=== PATIENT | male | born 1945 | race Caucasian/White ===

== ENCOUNTER → 2016-10-24 | Outpatient (CLI) | payer OTHER | LOC: BHFA 10:00 | PROVIDERS: ATTEND Internal Medicine Cardiovascular Disease | DX: I25.10 Atherosclerotic heart disease of native coronary artery without angina pectoris (principal) ==

== ENCOUNTER 2017-02-26 15:15 | Inpatient (IN) | payer OTHER ==
[2017-02-26] MEDS ORDERED: NS 1,000 ML IV ONE (16:55)
--- NOTE | 2017-02-26 17:01 | EDPHY ---
H & P Stated Complaint: vertigo, fall Time Seen by Provider: 02/26/17 16:42 HPI/ROS: CHIEF COMPLAINT: Syncope HISTORY OF PRESENT ILLNESS: The patient is a 71-year-old man who comes to the emergency department after 3 syncopal events today. He has a history of Meniere 's disease and is followed by Dr. James from ENT. He has almost constant vertigo with intermittent exacerbations. He woke up with an exacerbation this morning and while he was trying to crawl to the toilet to vomit he fainted. He is unsure how long he was out but woke up and resumed crawling to the toilet. He did not vomit. He then went down to the kitchen around 8:00 a.m. and had another episode where he collapsed from sitting at the table. He denies chest pain or shortness of breath with these episodes. He woke up on the ground. He did not sustain any injuries. Then again around 10:00 a.m. he had another episode while he was standing at the counter. He felt nauseous and vertiginous at the time. He again denies chest pain or shortness of breath. He hit his ear he thinks on the counter and has a hematoma and a small laceration behind his ear. He has a mild headache and neck pain but states that this is baseline for his been nares disease. He denies having any new pain. He denies any injuries to his extremities or torso. He has a history of atrial fibrillation status post ablation in 2006. He continues to take Rythmol. He does not take blood thinners other than aspirin and fish oil. He denies any focal weakness or deficits. The syncope however is new and does not typically occur with his Meniere's disease. REVIEW OF SYSTEMS: Constitutional: denies: chills, fever, recent illness, recent injury EENTM: Left ear with hematoma and small laceration Respiratory: denies: cough, shortness of breath Cardiac: denies: chest pain, irregular heart rate, lightheadedness, palpitations Gastrointestinal/Abdominal: denies: abdominal pain, diarrhea, nausea, vomiting, blood streaked stools Genitourinary: denies: dysuria, frequency, hematuria, pain Musculoskeletal: See HPI Skin: denies: lesions, rash, jaundice, bruising Neurological: See HPI Hematologic/Lymphatic: denies: blood clots, easy bleeding, easy bruising Immunologic/allergic: denies: HIV/AIDS, transplant EXAM: GENERAL: Well-appearing, well-nourished and in no acute distress. HEAD: Small abrasion to the top of his head. No hematoma or crepitus EYES: Pupils equal round and reactive to light, extraocular movements intact, sclera anicteric, conjunctiva are normal. ENT: Hematoma to the left ear and the scaphoid fossa. Small shallow laceration behind the ear. TMs normal, nares patent, oropharynx clear without exudates. Moist mucous membranes. NECK: Normal range of motion, supple without lymphadenopathy or JVD. No midline tenderness. LUNGS: Breath sounds clear to auscultation bilaterally and equal. No wheezes rales or rhonchi. HEART: Regular rate and rhythm without murmurs, rubs or gallops. ABDOMEN: Soft, nontender, normoactive bowel sounds. No guarding, no rebound. No masses appreciated. BACK: No CVA tenderness, no spinal tenderness, step-offs or deformities EXTREMITIES: Normal range of motion, no pitting or edema. No clubbing or cyanosis. NEUROLOGICAL: Cranial nerves II through XII grossly intact. Normal speech, normal gait. 5/5 strength, normal movement in all extremities, normal sensation PSYCH: Normal mood, normal affect. SKIN: Warm, dry, normal turgor, no visible rashes or lesions. Source: Patient Exam Limitations: No limitations - Personal History Current Tetanus Diphtheria and Acellular Pertussis (TDAP): Yes Tetanus Vaccine Date: 2008 - Medical/Surgical History Hx Asthma: No Hx Chronic Respiratory Disease: No Hx Diabetes: No Hx Cardiac Disease: No Hx Renal Disease: No Hx Cirrhosis: No Hx Alcoholism: No Hx HIV/AIDS: No Hx Splenectomy or Spleen Trauma: No Other PMH: a-fib, ablation 2006, sleep apnea, lumbar fusion , cervical fusion, R TKA - Family History Significant Family History: No pertinent family hx - Social History Smoking Status: Never smoked Alcohol Use: Sober Drug Use: None Constitutional: Initial Vital Signs Temperature (C) 36.5 C 02/26/17 15:22 Heart Rate 76 02/26/17 15:22 Respiratory Rate 16 02/26/17 15:22 Blood Pressure 113/72 02/26/17 15:22 O2 Sat (%) 97 02/26/17 15:22 O2 Delivery Mode Room Air Allergies/Adverse Reactions: amoxicillin [Amoxicillin] Allergy (Intermediate, Verified 10/19/09 11:25) RASH ON RIGHT DELTOID morphine Allergy (Verified 04/12/13 09:46) GI Home Medications: Medication Instructions Recorded Aspirin [Aspirin 81mg (OTC)] 81 mg PO HS 11/13/14 Irbesartan/Hydrochlorothiazide 1 tab PO DAILY 11/13/14 [Avalide 300-12.5 mg Tablet] Multivitamins [Multivitamin (OTC)] 1 tab PO DAILY 11/13/14 Turner-3 Fatty Acids [Fish Oil 1000 1,000 mg PO DAILY 11/13/14 mg (OTC)] Propafenone HCl Sr [Rythmol Sr 425 mg PO Q12 11/13/14 425mg (RX)] Simvastatin [Zocor 10 mg (RX)] 10 mg PO HS 11/13/14 Fexofenadine HCl [Deyanira Allergy] 60 mg PO DAILY 02/26/17 Herbals/Supplements -Info Only 1 ea PO DAILY 02/26/17 Montelukast Sodium [Montelukast 10 mg PO DAILY@18 02/26/17 Sodium] Medical Decision Making - Diagnostics EKG Interpretation: An EKG obtained and was read and documented in trace view. Please see trace view for full reading and report. 1st degree AV block with a rate of 69 versus junctional rhythm, new compared to 2011. An EKG obtained and was read and documented in trace view. Please see trace view for full reading and report. Junctional rhythm Imaging Results: Imaging Impressions Cervical Spine CT 02/26/17 16:55 Impression: 1. Acute nondisplaced fracture right C6 pedicle. 2. No other cervical spine fracture. 3. Bony fusion of C5 and C6 and well seated ACDF at C5-C6 are unchanged since 2012. 4. If the patient has persistent pain or neurologic deficits, consider cervical spine MRI. Findings discussed with emergency department physician, Dr. Kyra Holguin on February 26, 2017 at 5:[address] 02/26/17 16:55 Impression: 1. No acute fracture or intracranial hemorrhage. 2. Mild ethmoid and sphenoid sinus disease. Findings discussed with emergency department physician, Dr. Kyra Holguin on February 26, 2017 at 5:36 p.m. Procedures: Hematoma drainage: 18 gauge needle was placed at the scaphoid fossa and 2 cc of blood was withdrawn. The patient's ear was then addressed with packing in a pressure dressing. ED Course/Re-evaluation: The patient was placed in a cervical collar. His hematoma was drained. I will admit for syncopal episodes in the setting of AV block. I will also consult Neurosurgery considering his pedicle fracture. I spoke with Dr. Kern who suggested a cervical collar will consult. She would discharge if this was the patient's only injury. Cervical collar placed. 6:40 p.m. discussed the case with Dr. Dwain Elena who will admit to medical service. Differential Diagnosis: Partial list of the Differential diagnosis considered include but were not limited to; hematoma, laceration, head injury, neck injury, arrhythmia and although unlikely based on the history and physical exam, I also considered PE, infection, seizure. Critical Care Time: Critical care time spent by me, Dr. Watson exclusive with this patient was 35 minutes, exclusive of the PA time exclusive of procedures. The organ system that was at risk was neurologic musculoskeletal and cardiovascular and I gave trauma care and evaluation as well as cardiac workup to prevent worsening of the patient's condition - Data Points Laboratory Results: Laboratory Results 02/26/17 17:20 02/26/17 17:20 02/26/17 02/26/17 02/26/17 18:25 17:20 17:20 WBC RBC Hgb Hct MCV MCH MCHC RDW Plt Count MPV Neut % (Auto) Lymph % (Auto) Crosby % (Auto) Eos % (Auto) Baso % (Auto) Nucleat RBC Rel Count Absolute Neuts (auto) Absolute Lymphs (auto) Absolute Monos (auto) Absolute Eos (auto) Absolute Basos (auto) Absolute Nucleated RBC Immature Gran % Immature Gran # PT 12.9 SEC SEC (12.0-15.0) INR 0.98 (0.83-1.16) APTT 21.0 SEC L SEC (23.0-38.0) D-Dimer 2.77 ug/mLFEU H ug/mLFEU (0.00-0.50) Sodium 130 mEq/L L mEq/L (134-144) Potassium 3.9 mEq/L mEq/L (3.5-5.2) Chloride 94 mEq/L L mEq/L (97-110) Carbon Dioxide 27 mEq/l mEq/l (22-31) Anion Gap 9 mEq/L mEq/L (8-16) BUN 26 mg/dL H mg/dL (7-23) Creatinine 1.0 mg/dL mg/dL (0.7-1.3) Estimated GFR > 60 Glucose 174 mg/dL H mg/dL (70-100) Calcium 9.4 mg/dL mg/dL (8.5-10.4) Troponin I < 0.012 ng/mL ng/mL (0-0.034) Ur Random Sodium 21 mEq/L L mEq/L (30-90) Ethyl Alcohol < 10 mg/dL mg/dL (0-10) 02/26/17 17:20 WBC 7.14 10^3/uL 10^3/uL (3.80-9.50) RBC 4.07 10^6/uL L 10^6/uL (4.40-6.38) Hgb 13.5 g/dL L g/dL (13.7-17.5) Hct 38.6 % L % (40.0-51.0) MCV 94.8 fL fL (81.5-99.8) MCH 33.2 pg pg (27.9-34.1) MCHC 35.0 g/dL g/dL (32.4-36.7) RDW 12.3 % % (11.5-15.2) Plt Count 192 10^3/uL 10^3/uL (150-400) MPV 10.3 fL fL (8.7-11.7) Neut % (Auto) 85.8 % H % (39.3-74.2) Lymph % (Auto) 6.0 % L % (15.0-45.0) Crosby % (Auto) 7.6 % % (4.5-13.0) Eos % (Auto) 0.1 % L % (0.6-7.6) Baso % (Auto) 0.1 % L % (0.3-1.7) Nucleat RBC Rel Count 0.0 % % (0.0-0.2) Absolute Neuts (auto) 6.12 10^3/uL 10^3/uL (1.70-6.50) Absolute Lymphs (auto) 0.43 10^3/uL L 10^3/uL (1.00-3.00) Absolute Monos (auto) 0.54 10^3/uL 10^3/uL (0.30-0.80) Absolute Eos (auto) 0.01 10^3/uL L 10^3/uL (0.03-0.40) Absolute Basos (auto) 0.01 10^3/uL L 10^3/uL (0.02-0.10) Absolute Nucleated RBC 0.00 10^3/uL 10^3/uL (0-0.01) Immature Gran % 0.4 % % (0.0-1.1) Immature Gran # 0.03 10^3/uL 10^3/uL (0.00-0.10) PT INR APTT D-Dimer Sodium Potassium Chloride Carbon Dioxide Anion Gap BUN Creatinine Estimated GFR Glucose Calcium Troponin I Ur Random Sodium Ethyl Alcohol Medications Given: Discontinued Medications Sodium Chloride (Ns) 1,000 mls @ 0 mls/hr IV ONCE ONE PRN Reason: Wide Open Stop: 02/26/17 16:56 Last Admin: 02/26/17 17:45 Dose: 1,000 mls Ibuprofen (Motrin) 600 mg PO EDNOW ONE Stop: 02/26/17 18:31 Last Admin: 02/26/17 18:50 Dose: 600 mg Departure - Departure Disposition: [facility] Inpatient Acute Clinical Impression: Syncope and collapse, Hematoma Cervical spine fracture Qualifiers: Encounter type: initial encounter Cervical vertebra fracture level: C6 Fracture type: closed Fracture morphology: other fracture Fracture alignment: nondisplaced Qualified Code(s): S12.591A - Other nondisplaced fracture of sixth cervical vertebra, initial encounter for closed fracture Condition: Fair
--- NOTE | 2017-02-26 17:28 | CPEKG ---
Heart Rate: 69 RR Interval: 870 QRSD Interval: 88 QT Interval: 380 QTC Interval: 407 QRS [place]: 66 T Wave [place]: 38 EKG Severity - ABNORMAL ECG - EKG Impression: LOW VOLTAGE IN FRONTAL LEADS EKG Impression: 1St degree AV block versus junctional rhythm Electronically Signed By: Lavon Watson 26-Feb-2017 17:30:16
[2017-02-26 17:36] LABS: % IMMATURE GRANULYOCYTES 0.4 % (0.0-1.1); ABSOLUTE IMMATURE GRANULOCYTES 0.03 10^3/uL (0.00-0.10); ADD DIFF? NO; ADD MORPH? NO; ADD SCAN? NO; ATYPICAL LYMPHOCYTE FLAG 0 (0-99); FRAGMENT RBC FLAG 0 (0-99); HEMATOCRIT 38.6 % (40.0-51.0); HEMOGLOBIN 13.5 g/dL (13.7-17.5); LEFT SHIFT FLG 0 (0-99); LIPEMIA HEMOLYSIS FLAG 90 (0-99); MEAN CELL HEMOGLOBIN 33.2 pg (27.9-34.1); MEAN CELL VOLUME 94.8 fL (81.5-99.8); MEAN PLATELET VOLUME 10.3 fL (8.7-11.7); PLATELET CLUMPS FLAG 0 (0-99); PLATELET COUNT 192 10^3/uL (150-400); RED BLOOD CELL COUNT 4.07 10^6/uL (4.40-6.38); RED CELL DISTRIBUTION WIDTH 12.3 % (11.5-15.2)
[2017-02-26 17:49] LABS: ANION GAP 9 mEq/L (8-16); CALCIUM 9.4 mg/dL (8.5-10.4); CARBON DIOXIDE 27 mEq/l (22-31); CHLORIDE 94 mEq/L (97-110); ETHANOL SERUM < 10 mg/dL (0-10); GLOMERULAR FILTRATION RATE > 60; GLUCOSE 174 mg/dL (70-100); POTASSIUM 3.9 mEq/L (3.5-5.2); SODIUM 130 mEq/L (134-144)
[2017-02-26 17:55] LABS: INR 0.98 (0.83-1.16); PROTIME(PATIENT) 12.9 SEC (12.0-15.0)
[2017-02-26 18:01] LABS: TROPONIN I < 0.012 ng/mL (0-0.034)
[2017-02-26] MEDS ORDERED: IBUPROFEN 600 MG TAB PO ONE (18:30)
--- NOTE | 2017-02-26 18:39 | CPEKG ---
Heart Rate: 63 RR Interval: 952 QRSD Interval: 88 QT Interval: 400 QTC Interval: 410 QRS [place]: 61 T Wave [place]: 36 EKG Severity - ABNORMAL ECG - EKG Impression: ACCELERATED JUNCTIONAL ESCAPE RHYTHM EKG Impression: LOW VOLTAGE IN FRONTAL LEADS Electronically Signed By: Lavon Watson 26-Feb-2017 19:13:58
[2017-02-26] MEDS ORDERED: DIAZEPAM 5 MG TAB PO PRN (19:13)
[2017-02-26] MEDS ORDERED: oxyCODONE IR 5 MG TAB PO PRN (19:13)
--- NOTE | 2017-02-26 19:52 | GHP ---
[f rep st] HISTORY AND PHYSICAL DATE OF ADMISSION: 02/26/2017 CHIEF COMPLAINT: Syncope and vertigo. HISTORY OF PRESENT ILLNESS: This is a 71-year-old male with longstanding history of vertigo, attributed to possible Meniere disease, who presented to the emergency department after having 3 syncopal episodes today. The 1st episode occurred at 4 o'clock this morning when he awoke with an urge to defecate. He says that he gets this feeling at the onset of his vertigo spells. Upon getting out of bed, he became vertiginous, dropped to the floor, and began crawling toward the bathroom where apparently, he passed out. He was able to get back into his bed and went back to sleep. At around 10 o'clock this morning, he got up and had some tea and saltines and then awoke on the floor with what he describes as a sore ear. He was able to sit back down and started feeling better, but began to walk to the sink since he was nauseous and passed out a 3rd time. None of these episodes were associated with any chest pain or palpitations. He denies any previous syncopal episodes. He did have some neck pain after his 3rd fall. He denies any numbness or weakness in the hands. Currently, his vertigo is better. He denies any chest pain. PAST MEDICAL HISTORY: 1. Vertigo due to possible Meniere disease, followed by Dr. James of ENT. 2. Hypertension. 3. Atrial fibrillation status post ablation by Dr. Bryan, on [facility]. 4. Dyslipidemia. 5. Prostate cancer. PAST SURGICAL HISTORY: 1. Right total knee arthroplasty. 2. C1-C2 fusion. 3. Lumbar fusion. 4. Turbinate reduction. 5. Radical prostatectomy and radiation treatment for prostate cancer. HOME MEDICATIONS: Reviewed. Refer to [facility] for details. ALLERGIES: Penicillin and morphine. SOCIAL HISTORY: The patient is . He denies any tobacco or illicit drug use. He drinks alcohol occasionally. FAMILY HISTORY: Reviewed and noncontributory. REVIEW OF SYSTEMS: Comprehensive 10-point review of systems was done and was negative, except for as mentioned in the HPI. PHYSICAL EXAM: VITAL SIGNS: Blood pressure 122/68, pulse 74, respiratory rate 15, O2 saturation 96% on room air. Temperature afebrile. GENERAL: No acute distress. HEAD: Normocephalic. Right ear hematoma was drained in the emergency department. NECK: In a hard cervical collar. CARDIOVASCULAR: S1, S2. No lower extremity edema. Was unable to listen for bruits since the patient has a cervical collar. PULMONARY: Lungs were clear. No wheezes, rales , or rhonchi. ABDOMEN: Soft, mildly distended. No guarding or rebound tenderness. Normoactive bowel sounds. EXTREMITIES: No clubbing or cyanosis. NEURO: Cranial nerves 2 through 12 grossly intact. 5/5 muscle strength bilateral upper extremity flexion, extension, urgent care strength, with no gross sensory deficits. SKIN: Clear. No rashes. DIAGNOSTICS: Head CT shows no acute fracture or intracranial hemorrhage. EKG, which I visualized and personally interpreted, shows a junctional rhythm, 63 beats per minute. No ischemic changes. WBC 7.1, hemoglobin 13.5, hematocrit 38.6, platelets 192, D-dimer elevated at 2.77. Sodium 130, potassium 3.9, chloride 94, BUN 26, creatinine 1, glucose 174. Cervical spine CT is currently pending. Preliminary read shows a C6 pedicle fracture. ASSESSMENT AND PLAN: This is a 71-year-old male with reported history of recurrent vertigo and suspected Meniere's, presenting with: 1. Recurrent syncope concerning for drop attacks from a cardiac etiology in the setting of an abnormal EKG showing junctional rhythm. Plan: The patient will be monitored on telemetry. We will consult Dr. Malin who is plastic surgeon for the cardiology service. 2. C6 pedicle fracture. Plan: I discussed the case with Dr. Watson in the emergency department who has spoken to Dr. Kern who was plastic surgeon for Neurosurgery. Will see the patient in consultation. He should remain in a C- spine collar. 3. Right ear hematoma, status post drainage. Plan: Continue wound care. 4. Mild hyponatremia. Plan: We will send a urine sodium and repeat a metabolic panel in the morning. 5. Prerenal azotemia consistent with dehydration, possibly contributing to his symptoms. Plan: Will give IV fluids and monitor. 6. History of atrial fibrillation on Rythmol and aspirin. Plan: See above. 7. The patient will be placed on observation where he will be closely monitored. Addendum: I discussed case with Dr. Figueroa Malin who is plastic surgeon for Cardiology who recommended that we hold his Rythmol and obtain an echocardiogram which has been ordered. Cardiology will see him in the morning. /[id number]/MODL MTDD
[2017-02-26] MEDS: PRAVASTATIN SODIUM 20 MG TAB PO SCH (21:49)
[2017-02-26] MEDS: ASPIRIN 81 MG CHEWABLE TAB PO SCH (21:49)
[2017-02-27 04:23] LABS: % IMMATURE GRANULYOCYTES 0.2 % (0.0-1.1); ABSOLUTE IMMATURE GRANULOCYTES 0.01 10^3/uL (0.00-0.10); ADD DIFF? NO; ADD MORPH? NO; ADD SCAN? NO; ATYPICAL LYMPHOCYTE FLAG 0 (0-99); FRAGMENT RBC FLAG 0 (0-99); HEMATOCRIT 36.8 % (40.0-51.0); HEMOGLOBIN 12.6 g/dL (13.7-17.5); LEFT SHIFT FLG 0 (0-99); LIPEMIA HEMOLYSIS FLAG 90 (0-99); MEAN CELL HEMOGLOBIN 32.9 pg (27.9-34.1); MEAN CELL HEMOGLOBIN CONCENTR. 34.2 g/dL (32.4-36.7); MEAN CELL VOLUME 96.1 fL (81.5-99.8); MEAN PLATELET VOLUME 10.5 fL (8.7-11.7); PLATELET CLUMPS FLAG 0 (0-99); PLATELET COUNT 177 10^3/uL (150-400); RED BLOOD CELL COUNT 3.83 10^6/uL (4.40-6.38); RED CELL DISTRIBUTION WIDTH 12.6 % (11.5-15.2)
[2017-02-27 04:38] LABS: ANION GAP 6 mEq/L (8-16); CALCIUM 8.6 mg/dL (8.5-10.4); CARBON DIOXIDE 27 mEq/l (22-31); CHLORIDE 103 mEq/L (97-110); GLOMERULAR FILTRATION RATE > 60; GLUCOSE 89 mg/dL (70-100); POTASSIUM 3.8 mEq/L (3.5-5.2); SODIUM 136 mEq/L (134-144)
[2017-02-27] MEDS: ACETAMINOPHEN 325 MG TAB PO PRN (07:31)
[2017-02-27] MEDS: ONDANSETRON 4 MG/2 ML VIAL IVP PRN ×3 (07:57→18:19)
[2017-02-27] MEDS ORDERED: Herbals/Supplements -Info Only PO SCH (09:00)
[2017-02-27] MEDS ORDERED: HYDROCHLOROTHIAZIDE 12.5 MG CAP PO SCH ×2 (09:00→09:18)
[2017-02-27] MEDS ORDERED: IRBESARTAN 150 MG TAB PO SCH (09:00)
--- NOTE | 2017-02-27 09:41 | ECHO ---
[id number] + + [id number] : : [place] [address] : : [phone] + + Adult Echocardiographic Report + ---------+ :Name: RENETTA REYES NStudy Date: 02/27/2017 08:00 AM : : Hospital Admission Number: [id number] Yvonne alfonso: [birth year]: :: 1945 Gender: Male Height: 68 i n : :Age: 71 yrs Race: WH Weight: 142 lb : :Reason For Study: Syncope : : BSA: 1.8 met ers2 : + ---------+ MMode/2D Measurements \T\ Calculations Ao root diam: 3.2 cm LA dimension: 3.0 cm Normal Measurement Values: + + :LVIDd (3.5-5.7cm) IVSd (0.6-1.1cm) LVPWd (0.6-1.1cm) Aortic Root (2.0-3.7cm)Left Atrium (1.5-4.0cm): :LV Vol(d) (76-115ml) LV Vol(s) (29-48ml) Ejec Fraction (50-65%)PV Catalino (0.6- 1.2m/s) TV Catalino (0.4-1.0m/s) : :MV E Catalino (0.8-1.0m/s)MV A Catalino (0.3-1.0m/s)LVOT Catalino (0.7-1.2m/s) Asc Ao Catalino ( 0.9-1.8m/s) : + + Doppler Measurements \T\ Calculations MV E max catalino: 61.7 cm/sec Ao V2 max: 97.7 cm/sec MV A max catalino: 46.9 cm/sec Ao max P.8 mmHg MV E/A: 1.3 Left Ventricle The left ventricle is normal in size. Left ventricular systolic function is normal. Ejection Fraction = 60-65%. Right Ventricle The right ventricle is mildly dilated. Atria The left atrial size is normal. Right atrium not well visualized. Mitral Valve The mitral valve is grossly normal in structure. There is trace to mild mitral regurgitation. Tricuspid Valve The tricuspid valve is not well visualized. Aortic Valve The aortic valve is not well visualized. There is no aortic stenosis. Pulmonic Valve The pulmonic valve is not well visualized. Great Vessels The aortic root is normal size. Pericardium/Pleural There is no pericardial effusion. Conclusion A complete two-dimensional transthoracic echocardiogram was performed (2D, M-mode, Doppler and color flow Doppler). The study was technically limited. 1. This is a technically limited study. 2. The left ventricle is normal in size. The Ejection Fraction = 60-65%. 3. The right ventricle is mildly dilated. 4. The mitral valve is grossly normal in structure. There is trace to mild mitral regurgitation. 5. The aortic valve is not well visualized. There is no aortic stenosis by doppler. 6. There is no pericardial effusion. 7. The pulmonary artery pressure could not be adequately estimated. Final Reading Physician: Figueroa Malin MD electronically signed on 02/27/2017 09:40 AM Ordering Physician: Dwain Elena Performed By: Kmi Alvarado RDCS
--- NOTE | 2017-02-27 09:41 | HOSPPROG ---
Hospitalist Progress Note Assessment/Plan: DIAGNOSES: # multiple syncopal episodes with finding of junctional rhythm at presentation # acute traumatic pedicle fracture of C6; prior C4-5 fusion laminectomy with instrumentation appears stable by CT scan # ongoing vertigo symptoms, chronic history of recurrent vertigo with suspected Meniere's disease and right-sided hearing loss # history of atrial fibrillation status post ablation # history of hypertension I reviewed the patient's case in detail with Dr. Figueroa Malin of Cardiology. The feeling is that the patient is having his syncopal spells due to a combination of nausea vomiting, change in autonomic tone related to that, as well as his Meniere's disease. Discussion with the ENT physicians as shown their desire to increase his diuretic. At this point will increase his hydrochlorothiazide decreases angiotensin receptor salo doses. Follow his blood pressure closely. Continue follow his cardiac electrical activity and conduction on monitor at this point to make sure does not have any further heart block issues. It is not suspected he is likely to need a repeat benefit by pacemaker but will follow closely to make sure that we do not see changes indicating that ache procedure. The patient is still having a fair bit of neck pain without radicular neurologic symptoms. He is still in a rigid cervical collar and his cervical spine has not been formally cleared yet. We are waiting for Neurosurgery to evaluate his neck pain and fracture and neurologic examination. PLANS: -will need ongoing inpatient care on hyperbaric nurse -pain control -will add some scopolamine at this time to try and reduce his vertigo and nausea symptoms; we need to watch his bladder emptying a CSA history of prostate cancer, treated -continue rigid cervical spine collar for now until is spine is cleared; await neurosurgical evaluation and recommendations -change his blood pressure medicines as above to increase his diuretic and see if this helps his vertigo as well SUBJECTIVE: Still quite a bit of neck pain. He does not feel that there muscle spasms, and does not have noticed weakness or numbness or tingling He does believe that the narcotic oral pain medicines he is getting are aggravating his vertigo and dizziness and nausea at this time No new changes in hearing and no increase in his chronic right ear tinnitus OBJECTIVE Vitals reviewed: Overall stable without fever [employer], my review: Some first-degree heart block but no second-degree heart block or junctional rhythm noticed on the hyperbaric nurse here over night Exam: alert oriented looks mildly to moderately uncomfortable Is in rigid cervical collar appropriately fitted and applied Good sensation in his fingers and toes skin warm dry color ok resps not labored lungs clear BSs heart regular abd soft nondistended nontender, bowel sounds present limbs warm, no edema iv site ok 12 lead EKG, I reviewed the tracings on the EKG and monitors with Dr. Malin: Sinus rhythm with long first-degree AV block Objective: Vital Signs Temp Pulse Resp BP Pulse Ox 36.8 C 69 12 107/55 L 96 02/27/17 07:24 02/27/17 07:24 02/27/17 07:24 02/27/17 07:24 02/27/17 07:24 Laboratory Results 02/27/17 03:17 02/27/17 03:17 02/26/17 02/27/17 02/28/17 06:59 06:59 06:59 Intake Total 1150 Output Total 600 125 Balance 550 -125 PT 12.9 SEC (12.0-15.0) 02/26/17 17:20 INR 0.98 (0.83-1.16) 02/26/17 17:20 ICD10 Worksheet Patient Problems: Problems Problem Status Onset Cervical spine fracture Acute Hematoma Acute Syncope and collapse Acute Osteoarthritis of knee Acute
--- NOTE | 2017-02-27 10:59 | GCON ---
[f rep st] CONSULTATION NEUROSURGICAL CONSULTATION CHIEF COMPLAINT: Vertigo and fall. HISTORY OF PRESENT ILLNESS: This is a 71-year-old male with a longstanding history of vertigo, poss ible Meniere disease, who had 3 syncopal episodes on day of admission, which was yesterday. The fir st episode occurred when he awoke with an urge to defecate, stated that he gets this feeling at the onset of his vertigo. Upon getting out of bed, he felt vertiginous and dropped to the floor, began crawling toward the bathroom, where apparently he did have a complete syncopal episode. He was able to get back into bed, went back to sleep, and then awoke later in the morning, got up, had some tea and saltines and awoke on the floor with what he described as a "sore ear." He was able to sit prema k down, started feeling better, began to walk to the sink, had nausea, and had another syncopal epis ode. He did have some neck pain after his third fall, and states that he does have some neck pain n ow and a mild headache, and he still has continued vertigo. He denies any numbness, tingling, or we akness in his arms or legs. He denies any loss of control of bowel or bladder. He denies any other complaints at this time and he is wearing a hard cervical collar, although it is poorly fitting. PAST MEDICAL HISTORY: 1. Positive for vertigo secondary to Meniere disease. 2. Hypertension. 3. Atrial fibrillation, status post ablation with Dr. Bryan. 4. Dyslipidemia. 5. Prostate cancer. PAST SURGICAL HISTORY: Includes: 1. Right total knee arthroplasty. 2. Cervical fusion. 3. Lumbar fusion. 4. Turbinate reduction. 5. Radical prostatectomy and radiation treatment for prostate cancer. FAMILY HISTORY: No family history of osteoporosis or other contributory factors. SOCIAL HISTORY: He drinks 1 glass of wine a month. He does not smoke. He does not use illicit salvador gs. ALLERGIES: Amoxicillin and morphine. HOME MEDICATIONS: Include: 1. Singulair. 2. Deyanira. 3. Avalide. 4. Aspirin. 5. Zocor. 6. Rythmol. 7. [place]-3. 8. Multivitamin. 9. Some type of herbal supplement. REVIEW OF SYSTEMS: Complete 10-system review of systems was performed by myself, was negative excep t as stated above. VITAL SIGNS: Blood pressure is 107/55, heart rate is 69, respiratory rate is 12, satting 96% on roman m air, temp is 36.8 degrees Celsius. LABORATORY DATA: White blood cell count is 5.17, hemoglobin 12.6, hematocrit 36.8, platelets are 17 7. PT is 12.9, INR 0.9, APTT is 21. D-dimer was 2.77. Sodium 136, potassium 3.8, chloride 103, CO 2 27, BUN 18, creatinine 1.0. IMAGING STUDIES: CT of the cervical spine reveals an acute nondisplaced fracture coursing through t he right C6 pedicle. No other fractures. C5 and C6 are completely fused. Anterior cervical diskec gamaliel and fusion construct at C5-6 with anterior plate and bilateral trans-vertebral screws are well seated. There is 3 mm degenerative anterolisthesis of C7 on T1 that is unchanged from previous stud y. There is 1-2 mm of anterolisthesis of C4 on C5 secondary to facet arthropathy. Prevertebral sof t tissues are normal. Cervicooccipital junction is normal. Lung apices are clear. CT of the head reveals no acute fracture or intracranial hemorrhage. Mild ethmoid and sphenoid sinu s disease. PHYSICAL EXAMINATION: NEUROLOGIC: He is alert and oriented x3. Pupils are equal, round, reactive to light and accommodation. External ocular muscles are intact. There is no facial asymmetry. Ton chi deviation and sensation is intact, V1, V2, V3 distributions of 5th cranial nerve bilaterally. S trength is 5/5 to bilateral deltoids, biceps, triceps, wrist flexors, wrist extensors, hand intrinsi cs, iliopsoas, quadriceps, hamstrings, dorsiflexors, plantar flexors, EHL. DTRs are +2/4 biceps, br achioradialis, patellar, and Achilles. NECK: He has a hard cervical collar on, although it is poor ly fitting. IMPRESSION AND PLAN: This is a 71-year-old male with syncopal episode and vertigo, who has some nec k pain and was found to have acute C6 pedicle fracture. His previous cervical fusion is solid and s table and this pedicle fracture is stable, can be treated in a hard cervical collar, although he nee ds a better fitting collar. I did speak with the nurse, who will call Commissioner Of Conciliation to fit. He should wea r the collar 24 hours a day 7 days a week. We will see him back in our office either with myself or Dr. Rodriguez, who did his cervical fusion, with repeat x-rays in approximately 4 weeks. Would defer to Medicine for his syncopal workup and treatment of his Meniere disease. Please call with any tripathi ges in neurologic status. He is clear for discharge from a neurosurgical perspective whenever he is cleared by Medicine. /[id number]/MODL
--- NOTE | 2017-02-27 11:24 | GCON ---
[f rep st] CONSULTATION DATE OF CONSULTATION: 02/27/2017 CHIEF COMPLAINT: We have been asked by Dr. Elena to evaluate the patient with an episode of syncope in the setting of vertigo. HISTORY OF PRESENT ILLNESS: The patient is a 71-year-old gentleman with a history of mild coronary artery disease, paroxysmal atrial fibrillation, and benign positional vertigo, who presented to the emergency department on 02/26/2017, with 3 episodes of syncope. The patient was in his usual state of health until the day of admission, when he woke up at 4 o'clock in the morning with the urge to d efecate. Upon getting out of bed, he noted the onset of his typical vertigo symptoms. The patient became somewhat nauseous and lowered himself to the floor and began crawling to the bathroom. While crawling to the bathroom, the patient had the sudden onset of loss of consciousness. The patient r eports waking up on the floor and crawling the rest of the way to the bathroom. The patient denies symptoms of chest pain or palpitations with this event. The patient was able to make his way back t o the bed and went back to sleep. In the morning, he woke up around 10 o'clock and walked up to his kitchen to have some tea and saltines. While in the kitchen, he had another episode of vertigo fol lowed by an episode of syncope, resulting in an ear laceration. The patient then got up off the gamaliel or and walked over to the sink, where he had yet a third episode of syncope. Following this third e pisode of syncope, he presented to the emergency department for further evaluation. We have been as ked to help in the further management of this patient. The patient does have a previous history of mild coronary artery disease diagnosed by cardiac catheterization in June of 2008. The patient remains moderately active, exercising 3 days a week. The patient denies symptoms of chest pain or significant dyspnea with this activity. The patient underwent stress testing in October of 2016, de monstrating no evidence of ischemia or infarction and a Gastelum Treadmill Score of 10. The patient als o has a history of paroxysmal atrial fibrillation. The patient is symptomatic when he is in atrial fibrillation. He describes a wave-like sensation with the onset of his atrial fibrillation. He is status post ablation and has been on Rythmol therapy. The patient denies episodes of atrial fibrill ation with his current events. He has had approximately 4-8 episodes of atrial fibrillation over e last 4 years. The patient also reports a history of vertigo and has been evaluated by ENT. It is also thought he may have a component of Meniere disease as well, and diuretic therapy has been rece ntly recommended; however, the patient has not started it. The patient denies loss of bowel or blad emma control with the events. There is no history of orthopnea or PND. PAST MEDICAL HISTORY: 1. Vertigo. 2. Hypertension. 3. Paroxysmal atrial fibrillation. 4. Hyperlipidemia. 5. Mild coronary artery disease. 6. Prostate cancer, status post radical prostatectomy and radiation. MEDICATIONS: Please see medicine reconciliation form. ALLERGIES: 1. Penicillin. 2. Morphine. SOCIAL HISTORY: Patient is . He remains active, mountain biking. He denies tobacco or illi cit drug use. He drinks alcohol occasionally. FAMILY HISTORY: Noncontributory. REVIEW OF SYSTEMS: 10-point review of systems is negative, except as noted in HPI. PHYSICAL EXAMINATION: GENERAL: Patient is sitting up in bed with a cervical collar. He is in mild distress. VITAL SIGNS: Temperature is afebrile. Pulse is 69, blood pressure 107/55, respiratory rate is 12, SaO2 is 96% on room air. HEENT: Normocephalic. Evidence of trauma from his fall, incl uding laceration of left ear and cervical collar. NECK: Could not evaluate secondary to cervical c ollar. LUNGS: Clear to auscultation bilaterally. CARDIOVASCULAR: Regular rate and rhythm, S1, S2 . No murmurs, rubs, or gallops appreciated. ABDOMEN: Soft, nontender. Normoactive bowel sounds. No hepatosplenomegaly noted. EXTREMITIES: No clubbing, cyanosis, or edema. NEURO: Patient is aw josephine, alert, and oriented x3. SKIN: No evidence of rashes. LABORATORY DATA: White blood cell count is 5.17, hemoglobin 12.6, hematocrit 36.8, platelet count 1 77. INR is 0.98. Sodium 136, potassium 3.8, chloride 103, CO2 27, BUN 18, creatinine 1.0. Troponi n within normal limits x1. Ethyl alcohol is less than 10. EKG performed in the emergency department demonstrates sinus rhythm, normal axis, first-degree AV bl ock, poor R-wave progression, nonspecific ST and T-wave changes. ASSESSMENT/PLAN: The patient is a 71-year-old gentleman with: 1. Paroxysmal atrial fibrillation. The patient has a long history of paroxysmal atrial fibrillatio n. He has been managed with ablation and Rythmol. Given his current event, we will plan on discont inuing Rythmol as it may be contributing to bradycardia and syncope. The patient's CHADS2-VASc scor e is 2. He is not a good candidate for anticoagulation given his recent fall. We will continue to monitor on telemetry. 2. Coronary artery disease. Patient has a history of mild coronary artery disease by cardiac ryanne terization in 2007. He remains moderately to highly active and denies symptoms of angina. Stress t esting in October 2016 was within normal limits with a Gastelum Treadmill Score of 10, placing him at lo w risk for a cardiovascular event. We will continue medical management with aspirin, irbesartan, an d pravastatin. 3. Vertigo. The patient has a 4-year history of classic benign positional vertigo associated with symptoms of nystagmus. The patient may also have a component of Meniere disease and diuretic therap y has been recommended at this time. We will plan on backing off his irbesartan to allow his blood pressure to come up, and add hydrochlorothiazide 25 mg daily. 4. Syncope. The patient presents with 3 episodes of syncope in the setting of vertigo and increase d parasympathetic tone. Recent stress testing is within normal limits. Echocardiogram in 2016 demo nstrated no significant structural heart disease. EKG is notable for first-degree AV block. Jovon shea plan on obtaining a repeat echocardiogram to exclude significant structural heart disease. We papo shea also plan on continuing to monitor patient on telemetry monitoring for significant arrhythmias. S uspect patient's event is likely secondary to increased parasympathetic tone combined with his Rythm ol. We will discontinue Rythmol as noted at this time. Further recommendations to follow testing. /[id number]/MODL
[2017-02-27] MEDS ORDERED: HYDROmorphONE/DILAUDID 1 MG/ML SYR IVP PRN (11:40)
[2017-02-27] MEDS: MULTIVITAMINS 1 EACH TAB PO SCH (11:52)
[2017-02-27] MEDS: CETIRIZINE 10 MG TAB PO SCH (11:52)
[2017-02-27] MEDS: OMEGA-3 FATTY ACIDS 1,000 MG CAP PO SCH (11:52)
[2017-02-27] MEDS ORDERED: NALOXONE HCL 0.4 MG/ML INJ IVP PRN (13:01)
[2017-02-27] MEDS ORDERED: HYDROmorphONE/DILAUDID 6 MG/30 ML PCA IV PRN (13:01)
--- NOTE | 2017-02-27 17:06 | CPEKG ---
Heart Rate: 77 RR Interval: 779 QRSD Interval: 88 QT Interval: 376 QTC Interval: 426 QRS [place]: 50 T Wave [place]: 49 EKG Severity - ABNORMAL ECG - EKG Impression: ATRIAL FIBRILLATION EKG Impression: LOW VOLTAGE THROUGHOUT EKG Impression: ATRIAL FIBRILLATION IS NEW IN COMPARISON TO PRIOR Electronically Signed By: Figueroa Burr 02-Mar-2017 12:43:12
[2017-02-27] MEDS: KETOROLAC 15 MG/1 ML SDV IVP SCH (18:16)
[2017-02-27] MEDS: MONTELUKAST SODIUM 10 MG TAB PO SCH ×2 (18:16→18:21)
[2017-02-27] MEDS: PRAVASTATIN SODIUM 20 MG TAB PO SCH (21:05)
[2017-02-27] MEDS: ASPIRIN 81 MG CHEWABLE TAB PO SCH (21:05)
[2017-02-28] MEDS: KETOROLAC 15 MG/1 ML SDV IVP SCH ×5 (00:25→23:22)
[2017-02-28] MEDS: OMEGA-3 FATTY ACIDS 1,000 MG CAP PO SCH (10:46)
[2017-02-28] MEDS: CETIRIZINE 10 MG TAB PO SCH (10:46)
[2017-02-28] MEDS: MULTIVITAMINS 1 EACH TAB PO SCH (10:46)
[2017-02-28] MEDS: IRBESARTAN 75 MG TAB PO SCH (10:57)
[2017-02-28] MEDS: HYDROCHLOROTHIAZIDE 25 MG TAB PO SCH (10:57)
--- NOTE | 2017-02-28 11:17 | PDCARPN ---
Cardiology Progress Note Chief Complaint: syncope Assessment/Plan: Assessment: 71M PMH NAHUM/CPAP, PAF managed with rhythm control, dyslipidemia, mild CAD by [facility] 2007, vertigo/Meniere's disease, p/w syncope. Awoke on 02/27 at 4AM with sensation of needing to defecate and then followed by room-spinning vertigo with associated nausea. Got up out of bed to go to bathroom. Due to symptoms, he had to crawl and had syncope then without any antecedent prodrome. He went to BR and vomited a small amount. Got back to bed and slept for a few more hours. Upon awakening, he went up to his kitchen. He was sitting on bars stool having tea and crackers and fell off the stool with injury to ear. After that episode, we went to the sink to vomit and had another episode of syncope. #. syncope: ECG shows bradycardia and heart block will hold Rythmol longer will have telemetry reviewed by EP tomorrow #. PAF: we reviewed that he should not remain on Rythmol given syncope/pauses we discussed options of pacer implantation which would allow rate/rhythm control versus watchful waiting with event monitoring [id number] is 2 (age and CAD)/ currently managed on ASA Plan: - continue telemetry monitoring 02/28/17 11:10 Subjective: Mild KAHN and feeling LH currently. Time Spent With Patient: 25 minutes Objective: Vital Signs (8 Hrs) Temp Pulse Resp BP Pulse Ox 02/28/17 10:57 103/51 L 02/28/17 08:00 98.1 F 57 L 11 L 103/51 L 99 Intake/Output (24 Hrs) 02/27/17 02/28/17 03/01/17 05:59 05:59 05:59 Intake Total 1150 1600 Output Total 600 875 Balance 550 725 Intake: Oral (ml) 150 1000 IV Intake (ml) 600 IV Infused (ml) 1000 Output: Urine (ml) 600 875 Urinal 600 875 Other: Weight 64.41 kg Intake Quantity Yes Sufficient Number of Voids 1 Toilet 1 Urinal 3 Result Diagrams: 02/27/17 03:17 02/27/17 03:17 EK/29 ecg showed AF CVR Telemetry: reviewed Echocardiogram: reviewed/ unremarkable. - Physical Exam Constitutional: healthy appearing, no apparent distress Ears, Nose, Mouth, Throat: moist mucous membranes Cardiovascular: regular rate and rhythm Respiratory: clear to auscultate bilat, no crackles Gastrointestinal: normoactive bowel sounds, no tenderness Genitourinary: No york in urethra Neurologic: AAOx3 Psychiatric: cooperative, interactive ICD10 Worksheet Patient Problems: Problems Problem Status Onset Cervical spine fracture Acute Hematoma Acute Syncope and collapse Acute Osteoarthritis of knee Acute
[2017-02-28] MEDS ORDERED: LACTULOSE 20 GM/30 ML UDCUP PO PRN (13:45)
[2017-02-28] MEDS ORDERED: POLYETHYLENE GLYCOL 3350 17 GM PKT PO PRN (13:45)
[2017-02-28] MEDS ORDERED: BISACODYL 10 MG SUPP PR PRN (13:45)
[2017-02-28] MEDS ORDERED: MAGNESIUM HYDROXIDE 30 ML UDCUP PO PRN (13:45)
--- NOTE | 2017-02-28 13:46 | HOSPPROG ---
Hospitalist Progress Note Assessment/Plan: # syncope/junctional rhythm - holding rythmol - EP to eval tomorrow # p-afib - CHADS2 = 2; on asa - currently rate controlled # C6 pedicle fracture - cont hard collar per Dr Kern # vertigo/Meniere's - hctz increased # htn - follow with BP med changes - cont ARB, hctz now Subjective: episode of emesis last night with bradycardia Objective: Vital Signs Temp Pulse Resp BP Pulse Ox 36.7 C 71 16 118/60 94 02/28/17 12:00 02/28/17 12:00 02/28/17 12:00 02/28/17 12:00 02/28/17 12:00 Laboratory Results 02/27/17 03:17 02/27/17 03:17 02/27/17 02/28/17 03/01/17 05:59 05:59 05:59 Intake Total 1150 1600 400 Output Total 600 875 250 Balance 550 725 150 PT 12.9 SEC (12.0-15.0) 02/26/17 17:20 INR 0.98 (0.83-1.16) 02/26/17 17:20 new pt to wy chart reviewed ECG personally reviewed tele reviewed - Physical Exam Constitutional: no apparent distress, appears nourished Ears, Nose, Mouth, Throat: other (hard neck collar) Cardiovascular: regular rate and rhythym, no murmur, rub, or gallop Respiratory: no respiratory distress, no rales or rhonchi, clear to auscultation ICD10 Worksheet Patient Problems: Problems Problem Status Onset Osteoarthritis of knee Acute Cervical spine fracture Acute Syncope and collapse Acute Hematoma Acute
[2017-02-28] MEDS: MONTELUKAST SODIUM 10 MG TAB PO SCH (18:14)
[2017-02-28] MEDS: SENNOSIDES/DOCUSATE SODIUM TAB PO SCH (20:32)
[2017-02-28] MEDS: PRAVASTATIN SODIUM 20 MG TAB PO SCH (20:32)
[2017-02-28] MEDS: ASPIRIN 81 MG CHEWABLE TAB PO SCH (20:33)
[2017-03-01] MEDS: KETOROLAC 15 MG/1 ML SDV IVP SCH ×5 (06:03→21:45)
[2017-03-01 07:56] LABS: ANION GAP 6 mEq/L (8-16); CALCIUM 8.3 mg/dL (8.5-10.4); CARBON DIOXIDE 25 mEq/l (22-31); CHLORIDE 104 mEq/L (97-110); CREATININE 0.9 mg/dL (0.7-1.3); GLOMERULAR FILTRATION RATE > 60; GLUCOSE 81 mg/dL (70-100); POTASSIUM 4.1 mEq/L (3.5-5.2); SODIUM 135 mEq/L (134-144)
[2017-03-01] MEDS: MULTIVITAMINS 1 EACH TAB PO SCH (09:08)
[2017-03-01] MEDS: CETIRIZINE 10 MG TAB PO SCH (09:08)
[2017-03-01] MEDS: OMEGA-3 FATTY ACIDS 1,000 MG CAP PO SCH (09:08)
[2017-03-01] MEDS: SENNOSIDES/DOCUSATE SODIUM TAB PO SCH ×2 (09:08→20:38)
[2017-03-01] MEDS: ACETAMINOPHEN 325 MG TAB PO PRN (09:11)
--- NOTE | 2017-03-01 09:37 | CPEKG ---
Heart Rate: 66 RR Interval: 909 P-R Interval: 216 QRSD Interval: 80 QT Interval: 372 QTC Interval: 390 P [place]: 61 QRS [place]: 79 T Wave [place]: 45 EKG Severity - BORDERLINE ECG - EKG Impression: SINUS RHYTHM EKG Impression: LOW VOLTAGE THROUGHOUT EKG Impression: SINUS RHYTHM HAS REPLACED ATRIAL FIBRILLATION Electronically Signed By: Figueroa Burr 02-Mar-2017 12:43:35
--- NOTE | 2017-03-01 10:18 | PDCARPN ---
Cardiology Progress Note Chief Complaint: patient reports no lightheadedness. Does report neck pain. Assessment/Plan: Assessment: Patient is new to [place], 71 year significant history non flow limiting CAD ( cardiac 05/26/2008) hypertension, dyslipidemia, paroxysmal atrial fibrillation and history of electrophysiology study with ablation, uncertain of procedure at this time. Admitted on 02/26/2017 for 3 syncopal events. Noted on initial electrocardiogram to have significant first-degree AV. Has had EKG strips telemetry showing pauses up greater than 2 seconds and brief periods of second- degree heart block type 2. Rythmol has been held. Patient with syncopal event did fall, and has been noted to have a C6 pedicle fracture. Seen by Neurosurgery, placed in C-collar for minimum of 6 weeks. Echocardiogram on 02/27 showing LV normal size with EF of 60-65%, RV is mildly dilated, trace to mild MR. Patient with noted exercise treadmill testing showing no signs of ischemia on 10/24/2016. He reports no episodes of chest pain or pressure. Reports no other episodes palpitations. Reviewing continuous cardiac monitoring today showing patient in sinus rhythm, small runs of atrial fibrillations, no significant pauses. There was 1, 11 beat run wide complex ventricular arrhythmia at around 75 BPM at 3:48 this morning. Patient denies of any further episodes of lightheadedness near-syncope, or syncopal events. Denies of any chest pain or pressure. Plan: 1. Syncopal event: No significant pauses overnight. Rythmol has been held. Have reviewed the strips pauses greater than 2 seconds, and second-degree heart type [address] Bryan and [address] Torres (EP services). They have seen the patient, and recommend PPM implantation, is scheduled to be done tomorrow at 9:30 a.m. EP lab. 2. Paroxysmal atrial fibrillation: Currently in sinus rhythm. Noted brief episodes of PAF. CHADSVAS score of 2, felt not to be appropriate candidate for anticoagulation with recent fall and cervical spine fractures. On aspirin. 3. CAD: No ischemic changes noted on EKG. Troponin negative on admission. Recent ETT showing no signs of ischemia. ECHO on admission showing normal LV wall motion. Continue on aspirin therapy as above. 4. Hypertension: Blood pressure well controlled on current home doses of Avapro. 5. Hyperlipidemia: Continue on home dose of pravastatin. 6. Cervical spine fracture: No neuro deficits, C-collar per Neurosurgery. 03/01/17 10:18 Subjective: Patient reports no chest pain, palpitations, lightheadedness, near-syncope, or syncopal events. Reviewed/Discussed With: hospitalist (Dr Morrison), other (Dr Bryan and Dr Torres) Objective: Vital Signs (8 Hrs) Temp Pulse Resp BP Pulse Ox 03/01/17 07:58 36.7 C 66 18 105/55 L 98 03/01/17 07:33 53 L 03/01/17 03:58 36.6 C 62 16 109/56 L 97 Intake/Output (24 Hrs) 02/28/17 03/01/17 03/02/17 05:59 05:59 05:59 Intake Total 1650 Output Total 275 Balance 1375 Intake: Oral (ml) 1450 IV Intake (ml) 200 Output: Urine (ml) 275 Urinal 275 Other: Number of Voids Toilet 4 Urinal 1 Number of Stools Toilet 0 Result Diagrams: 02/27/17 03:17 03/01/17 03:49 - Physical Exam Constitutional: WDWN, healthy appearing Ears, Nose, Mouth, Throat: moist mucous membranes Cardiovascular: regular rate and rhythm, no rubs, systolic murmur ( 1/6 systolic murmur noted along left sternal border.), pulses symmetric bilat, No jugular vein distention Peripheral Pulses: 1+: dorsalis-pedis (R), dorsalis-pedis (L) Respiratory: clear to auscultate bilat, no crackles, no wheezes, No reduced air movement, No expiratory wheeze Gastrointestinal: normoactive bowel sounds, no tenderness, no masses Skin: warm, no edema, other ( C-collar in place.) Neurologic: AAOx3 Psychiatric: cooperative, interactive, following commands ICD10 Worksheet Patient Problems: Problems Problem Status Onset Osteoarthritis of knee Acute Cervical spine fracture Acute Syncope and collapse Acute Hematoma Acute
[2017-03-01] MEDS: IRBESARTAN 75 MG TAB PO SCH (10:51)
[2017-03-01] MEDS: HYDROCHLOROTHIAZIDE 25 MG TAB PO SCH (10:51)
--- NOTE | 2017-03-01 14:37 | HOSPPROG ---
Hospitalist Progress Note Assessment/Plan: # syncope/pauses - ppm tomorrow - holding rythmol # p-afib - CHADS2 = 2; on asa - currently rate controlled # C6 pedicle fracture - cont hard collar per Dr Kern, min 6 weeks # vertigo/Meniere's - hctz increased # htn - follow with BP med changes - cont ARB, hctz now Subjective: slept very well last night; still feesl weak Objective: Vital Signs Temp Pulse Resp BP Pulse Ox 36.6 C 65 14 108/61 98 03/01/17 11:26 03/01/17 11:26 03/01/17 11:26 03/01/17 11:26 03/01/17 11:26 Laboratory Results 03/01/17 03:49 02/28/17 03/01/17 03/02/17 05:59 05:59 05:59 Intake Total 1650 Output Total 275 Balance 1375 PT 12.9 SEC (12.0-15.0) 02/26/17 17:20 INR 0.98 (0.83-1.16) 02/26/17 17:20 chart reviewed - ppm tomorrow tele personally reviewed - no pauses x 24 hours - Physical Exam Constitutional: no apparent distress, appears nourished Ears, Nose, Mouth, Throat: other (hard c-collar) Cardiovascular: regular rate and rhythym, no murmur, rub, or gallop Respiratory: no respiratory distress, no rales or rhonchi, clear to auscultation Gastrointestinal: normoactive bowel sounds, soft, non-tender abdomen, no palpable masses ICD10 Worksheet Patient Problems: Problems Problem Status Onset Osteoarthritis of knee Acute Cervical spine fracture Acute Syncope and collapse Acute Hematoma Acute
[2017-03-01] MEDS: MONTELUKAST SODIUM 10 MG TAB PO SCH (18:02)
[2017-03-01] MEDS: PRAVASTATIN SODIUM 20 MG TAB PO SCH (20:36)
[2017-03-01] MEDS: ASPIRIN 81 MG CHEWABLE TAB PO SCH (20:37)
[2017-03-02 04:58] LABS: % IMMATURE GRANULYOCYTES 0.5 % (0.0-1.1); ABSOLUTE IMMATURE GRANULOCYTES 0.02 10^3/uL (0.00-0.10); ADD DIFF? NO; ADD MORPH? NO; ADD SCAN? NO; ATYPICAL LYMPHOCYTE FLAG 0 (0-99); FRAGMENT RBC FLAG 0 (0-99); HEMATOCRIT 33.6 % (40.0-51.0); HEMOGLOBIN 11.3 g/dL (13.7-17.5); LEFT SHIFT FLG 0 (0-99); LIPEMIA HEMOLYSIS FLAG 80 (0-99); MEAN CELL HEMOGLOBIN 33.3 pg (27.9-34.1); MEAN CELL HEMOGLOBIN CONCENTR. 33.6 g/dL (32.4-36.7); MEAN CELL VOLUME 99.1 fL (81.5-99.8); MEAN PLATELET VOLUME 10.6 fL (8.7-11.7); PLATELET CLUMPS FLAG 0 (0-99); PLATELET COUNT 180 10^3/uL (150-400); RED BLOOD CELL COUNT 3.39 10^6/uL (4.40-6.38); RED CELL DISTRIBUTION WIDTH 12.9 % (11.5-15.2)
[2017-03-02 05:00] LABS: INR 1.07 (0.83-1.16); PROTIME(PATIENT) 13.8 SEC (12.0-15.0)
[2017-03-02 05:01] LABS: APTT 25.9 SEC (23.0-38.0)
[2017-03-02] MEDS: KETOROLAC 15 MG/1 ML SDV IVP SCH ×3 (05:17→17:11)
[2017-03-02] MEDS ORDERED: diphenhydrAMINE 25 MG CAP PO ONE (06:00)
[2017-03-02] MEDS ORDERED: NS 1,000 ML IV ONE (06:00)
[2017-03-02] MEDS ORDERED: BACITRACIN IRRIGATION/NS 50,000 UNITS/1,000 ML BTL IRR ONE (06:00)
[2017-03-02 06:28] LABS: ALANINE AMINOTRANSFERASE 29 IU/L (21-72); ALBUMIN 2.9 g/dL (3.5-5.0); ALKALINE PHOSPHATASE 61 IU/L (38-126); ANION GAP 6 mEq/L (8-16); ASPARTATE AMINOTRANSFERASE 23 IU/L (17-59); BILIRUBIN,TOTAL 0.4 mg/dL (0.1-1.4); CALCIUM 8.6 mg/dL (8.5-10.4); CARBON DIOXIDE 26 mEq/l (22-31); CHLORIDE 105 mEq/L (97-110); CREATININE 0.9 mg/dL (0.7-1.3); GLOMERULAR FILTRATION RATE > 60; GLUCOSE 84 mg/dL (70-100); SODIUM 137 mEq/L (134-144); TOTAL PROTEIN 5.3 g/dL (6.3-8.2)
[2017-03-02] MEDS ORDERED: fentaNYL 100 MCG/2 ML INJ ONE (08:50)
[2017-03-02] MEDS ORDERED: LIDOCAINE 1% 300 MG/30 ML SDV ONE (08:50)
[2017-03-02] MEDS ORDERED: MIDAZOLAM 2 MG/2 ML VIAL ONE (08:50)
[2017-03-02] MEDS ORDERED: BUPIVACAINE 0.5% 30 ML SDV ONE (08:50)
[2017-03-02] MEDS ORDERED: IOPAMIDOL (ISOVUE-300) 100 ML BTL ONE (08:51)
[2017-03-02] MEDS ORDERED: VANCOMYCIN HCL/NORMAL SALINE 250 ML IV ONE (09:00)
[2017-03-02] MEDS ORDERED: PROPOFOL 200 MG/20 ML VIAL ONE ×2 (09:03→09:44)
[2017-03-02] MEDS ORDERED: ONDANSETRON 4 MG/2 ML VIAL ONE (09:05)
[2017-03-02] MEDS ORDERED: DEXAMETHASONE 4 MG/ML VIAL ONE (09:05)
[2017-03-02] MEDS ORDERED: epHEDrine SULFATE 10 MG/ML SYR ONE ×2 (09:51→10:07)
--- NOTE | 2017-03-02 11:16 | EPPROC ---
Electrophysiology Procedure Note: PROCEDURE PERFORMED: Implantation of an A/V Pacemaker Subclavian vein angiography Fluoroscopy INDICATION: This is a 71 yr old with PAF who had been on Rhythmol for a long time with good impact of the same. However, he presented with an episode of syncope and even after stopping Rhythmol he had significant pauses. In view of this it was decided to implant a dual chamber pacemaker. PROCEDURE NOTE: Patient presented to the cardiac catherization laboratory in a fasting, post absorptive state. Cardiac laborer filter plant nurse administered moderate sedation. The left infraclavicular area was prepped and draped in the usual sterile fashion. Lidocaine plus bupivacaine was used for local anesthesia. Left subclavian venography was performed by injection of iodinated contrast into the left antecubital vein. This was done to assure patency of the vein and also to assess for any anatomical aberrations. Using a combination of blunt and sharp dissection and electrocautery, the dissection was carried down to the prepectoral fascia. All bleeding was controlled with electrocautery. Fluoroscopy was utilized during the entire procedure for venous access and placement of the leads. Using the usual technique, left cephalic vein was accessed and a glidewire was placed. However, the vein was small and hence access was difficult. Hence under fluoroscopic guidance using subclavian venogram as reference, left subclavian access was obtained and through this initially a 9F and later a 7F sheath was passed. Placement of the guidewires into the venous system was confirmed by low-pressure blood return and also by visualizing the guidewires advancing into the inferior vena cava. A purse string suture was applied around the guidewires. An active fixation ventricular lead was advanced into the right ventricular apex and screwed in place. An active fixation atrial lead was advanced into the right atrial appendage and screwed in place. The peel away sheaths were removed. Pacing thresholds, sensing parameters and lead impedances were measured. There was no diaphragmatic stimulation at maximum output. The leads were sutured to the prepectoral fascia with 3 nonabsorbable sutures each. The pocket was created and it was flushed using antibiotic solution. It was inspected for any bleeding. The leads were attached to the pacemaker securely. The pacemaker was inserted into the pocket and secured in place with a nonabsorbable suture. Fluoroscopy was performed in [place] and [facility] [place] planes to verify right-sided placement of the leads. Also fluoroscopy of the pacemaker pocket was performed. The pacemaker pocket was closed in 3 layers with absorbable vicryl sutures. Steristrips were placed. Appropriate dressing was applied. The patient left the cardiac catheterization laboratory in stable condition. Serial Numbers: Device: Double Doodsronik Eluna 8DR SN [id number] Atrial Lead: Biotronik SOlia S45 SN [id number] Ventricular Lead: Biotronik Solia S53 SN [id number] Stimulation Thresholds & Impedance Measurements: Atrial Lead 1.5mV, 1.2@0.4ms, 429Ohms Ventricular Lead 5.3mV, 0.8@0.4ms, 526Ohms Dickson Pacing Parameters Pacing mode: DDDR Lower rate: 60 Upper tracking rate: 120 Upper sensor rate: 120 Patient Problems: Problems Problem Status Onset Cervical spine fracture Acute Hematoma Acute Syncope and collapse Acute Osteoarthritis of knee Acute
--- NOTE | 2017-03-02 11:37 | CPEKG ---
Heart Rate: 65 RR Interval: 923 P-R Interval: 236 QRSD Interval: 80 QT Interval: 392 QTC Interval: 408 P [place]: 0 QRS [place]: 61 T Wave [place]: 49 EKG Severity - ABNORMAL ECG - EKG Impression: SINUS RHYTHM EKG Impression: FIRST DEGREE AV BLOCK EKG Impression: LOW VOLTAGE IN FRONTAL LEADS Electronically Signed By: Figueroa Burr 02-Mar-2017 12:43:50
[2017-03-02] MEDS: SENNOSIDES/DOCUSATE SODIUM TAB PO SCH ×2 (14:00→21:44)
[2017-03-02] MEDS: ACETAMINOPHEN 325 MG TAB PO PRN ×2 (14:17→21:53)
[2017-03-02] MEDS: OMEGA-3 FATTY ACIDS 1,000 MG CAP PO SCH (14:18)
[2017-03-02] MEDS: CETIRIZINE 10 MG TAB PO SCH (14:18)
[2017-03-02] MEDS: MULTIVITAMINS 1 EACH TAB PO SCH (14:19)
--- NOTE | 2017-03-02 17:39 | HOSPPROG ---
Hospitalist Progress Note Assessment/Plan: # syncope/pauses - s/p ppm today - rythmol restarted # possible thoracic mass on CXR - recheck PA/Lat in am # p-afib - CHADS2 = 2; on asa # C6 pedicle fracture - cont hard collar per Dr Kern, min 6 weeks # vertigo/Meniere's - hctz increased # htn - follow with BP med changes - cont ARB, hctz now # dispo - likely dc tomorrow Subjective: s/p pacer - no complications; no new pain Objective: Vital Signs Temp Pulse Resp BP Pulse Ox 36.6 C 84 16 108/64 98 03/02/17 13:40 03/02/17 16:00 03/02/17 13:40 03/02/17 16:00 03/02/17 13:40 Laboratory Results 03/02/17 03:33 03/02/17 03:33 03/01/17 03/02/17 03/03/17 05:59 05:59 05:59 Intake Total 1650 2350 Output Total 275 250 Balance 1375 2100 PT 13.8 SEC (12.0-15.0) 03/02/17 03:33 INR 1.07 (0.83-1.16) 03/02/17 03:33 ECG personally reviewed op note reviewed CXR personally reviewed - Physical Exam Constitutional: no apparent distress, appears nourished Cardiovascular: regular rate and rhythym, no murmur, rub, or gallop, other (L upper chest with gauze - CDI) Respiratory: no respiratory distress, no rales or rhonchi, clear to auscultation Gastrointestinal: normoactive bowel sounds, soft, non-tender abdomen, no palpable masses ICD10 Worksheet Patient Problems: Problems Problem Status Onset Osteoarthritis of knee Acute Cervical spine fracture Acute Syncope and collapse Acute Hematoma Acute
[2017-03-02] MEDS: MONTELUKAST SODIUM 10 MG TAB PO SCH (19:09)
[2017-03-02] MEDS: PROPAFENONE HCL SR 225 MG CAP PO SCH (21:43)
[2017-03-02] MEDS: ASPIRIN 81 MG CHEWABLE TAB PO SCH (21:44)
[2017-03-02] MEDS: PRAVASTATIN SODIUM 20 MG TAB PO SCH ×2 (21:53→21:54)
[2017-03-03] MEDS: KETOROLAC 15 MG/1 ML SDV IVP SCH ×3 (02:29→13:11)
[2017-03-03 04:43] LABS: % IMMATURE GRANULYOCYTES 0.2 % (0.0-1.1); ABSOLUTE IMMATURE GRANULOCYTES 0.01 10^3/uL (0.00-0.10); ADD DIFF? NO; ADD MORPH? NO; ADD SCAN? NO; ATYPICAL LYMPHOCYTE FLAG 0 (0-99); FRAGMENT RBC FLAG 10 (0-99); HEMATOCRIT 32.3 % (40.0-51.0); HEMOGLOBIN 10.9 g/dL (13.7-17.5); LEFT SHIFT FLG 10 (0-99); LIPEMIA HEMOLYSIS FLAG 80 (0-99); MEAN CELL HEMOGLOBIN 33.4 pg (27.9-34.1); MEAN CELL HEMOGLOBIN CONCENTR. 33.7 g/dL (32.4-36.7); MEAN CELL VOLUME 99.1 fL (81.5-99.8); MEAN PLATELET VOLUME 10.4 fL (8.7-11.7); PLATELET CLUMPS FLAG 0 (0-99); PLATELET COUNT 209 10^3/uL (150-400); RED BLOOD CELL COUNT 3.26 10^6/uL (4.40-6.38); RED CELL DISTRIBUTION WIDTH 12.9 % (11.5-15.2)
[2017-03-03 05:01] LABS: ANION GAP 6 mEq/L (8-16); CALCIUM 8.2 mg/dL (8.5-10.4); CARBON DIOXIDE 26 mEq/l (22-31); CHLORIDE 106 mEq/L (97-110); CREATININE 0.8 mg/dL (0.7-1.3); GLOMERULAR FILTRATION RATE > 60; GLUCOSE 84 mg/dL (70-100); POTASSIUM 3.9 mEq/L (3.5-5.2); SODIUM 138 mEq/L (134-144)
--- NOTE | 2017-03-03 08:51 | CPEKG ---
Heart Rate: 60 RR Interval: 1000 P-R Interval: 260 QRSD Interval: 70 QT Interval: 356 QTC Interval: 356 QRS [place]: 62 T Wave [place]: 45 EKG Severity - ABNORMAL ECG - EKG Impression: ATRIAL-PACED RHYTHM EKG Impression: LOW VOLTAGE THROUGHOUT Electronically Signed By: Alberto Torres 03-Mar-2017 08:58:07
[2017-03-03] MEDS: PROPAFENONE HCL SR 225 MG CAP PO SCH (09:54)
[2017-03-03] MEDS: OMEGA-3 FATTY ACIDS 1,000 MG CAP PO SCH (09:54)
[2017-03-03] MEDS: MULTIVITAMINS 1 EACH TAB PO SCH (09:54)
[2017-03-03] MEDS: SENNOSIDES/DOCUSATE SODIUM TAB PO SCH (09:54)
[2017-03-03] MEDS: CETIRIZINE 10 MG TAB PO SCH (09:54)
[2017-03-03 11:11] VITALS: BP 113/74; PULSE 77; RESP 12; TEMP 98.5; O2SAT 93
--- NOTE | 2017-03-03 12:03 | PDCARPN ---
Cardiology Progress Note Chief Complaint: syncope Assessment/Plan: Assessment: 71M PMH NAHUM/CPAP, PAF managed with rhythm control, dyslipidemia, mild CAD by [facility] 2007, vertigo/Meniere's disease, p/w syncope. Awoke on 02/27 at 4AM with sensation of needing to defecate and then followed by room-spinning vertigo with associated nausea. Got up out of bed to go to bathroom. Due to symptoms, he had to crawl and had syncope then without any antecedent prodrome. He went to BR and vomited a small amount. Got back to bed and slept for a few more hours. Upon awakening, he went up to his kitchen. He was sitting on bar stool having tea and crackers and fell off the stool with injury to ear. After that episode, we went to the sink to vomit and had another episode of syncope. #. syncope: ECG shows bradycardia and heart block Rythmol held/ pacer now in place and so placed on lower dose Rythmol 225 BID #. PAF: currently in SR [id number] is 2 (age and CAD)/ currently managed on ASA #. sedation feeling: pt reports feeling sedated we reviewed BP and HR are stable/ he is in SR unclear etiology d/w hospitalist Dr. Justice/ will hold any sedating medications and pt advised to drink more water Plan: - pt safe to discharge from cardiology perspective when sedation symptom clears - we will arrange 1 week pacer/wound check - should see EP in 1 month after pacer implantation Subjective: Feels sedated. Awoke feeling well but during pacer check symptoms started. No vertigo or lightheadedness. Reviewed/Discussed With: hospitalist Time Spent With Patient: 15 minutes Objective: Vital Signs (8 Hrs) Temp Pulse Resp BP Pulse Ox 03/03/17 11:10 98.5 F 77 12 113/74 93 03/03/17 07:20 98.1 F 76 14 100/62 98 03/03/17 04:00 97.9 F 60 18 107/60 94 Intake/Output (24 Hrs) 03/02/17 03/03/17 03/04/17 05:59 05:59 05:59 Intake Total 2350 850 350 Output Total 250 450 275 Balance 2100 400 75 Intake: Oral (ml) 2350 850 350 Output: Urine (ml) 250 450 275 Urinal 250 450 275 Other: Number of Voids Toilet 1 Urinal 1 1 1 Number of Stools Toilet 1 1 Urinal 1 Result Diagrams: 03/03/17 03:31 03/03/17 03:31 EKG: A-paced rhythm Telemetry: reviewed - Physical Exam Constitutional: healthy appearing, no apparent distress Eyes: anicteric sclera Cardiovascular: regular rate and rhythm, no murmurs Respiratory: clear to auscultate bilat Neurologic: AAOx3 Psychiatric: cooperative, interactive ICD10 Worksheet Patient Problems: Problems Problem Status Onset Cervical spine fracture Acute Hematoma Acute Syncope and collapse Acute Osteoarthritis of knee Acute
--- NOTE | 2017-03-03 18:43 | GDS ---
[f rep st] DISCHARGE SUMMARY DISCHARGE DIAGNOSES: Include: 1. Syncope. 2. Paroxysmal atrial fibrillation. 3. C6 pedicle fracture. 4. Vertigo/Meniere's. 5. Hypertension. 6. Bradycardia and heart block. HISTORY OF PRESENT ILLNESS: A 71-year-old male who presents with syncope. For details of patient's initial presentation, please see the history and physical dated 02/28/2017. CONSULTATIVE SERVICES: Include Cardiology. PROCEDURES: On 03/02/2017, the patient had a permanent pacemaker placed. HOSPITAL COURSE BY ISSUE: 1. Syncope. The patient was found to have severe bradycardia and heart block. He was evaluated by Electrophysiology and had a permanent pacemaker placed. The patient had his medications titrated b y Cardiology and is being discharged to follow post disposition. Heart rates on the day of disposit ion were in the 60s to 70s. The patient is being discharged on Rythmol 225 q.12 and will follow wit h the cardiology team in 1 week for device check and in 1 month for atrial fibrillation/heart block check. 2. Hypertension. He was continued on his irbesartan/hydrochlorothiazide. 3. Hyperlipidemia. He was continued on his statin therapy. MEDICATIONS AT THE TIME OF TRANSFER: Please reference medication reconciliation printed on 03/03/20 17. PENDING STUDIES: At the time of this dictation are none. FOLLOWUP APPOINTMENTS: Include with Aida Chung in 1 week and 1 month for device and rhythm check . TIME SPENT: I spent greater than 30 minutes in the planning and coordination of this discharge. /[id number]/MODL
== END 2017-03-03 16:09 | disposition home or self-care (01) | DRG 243 ==
LOC: F2W 20:08 → OBSVTOIN 02-28 15:11
PROVIDERS: ADMIT Family Medicine; ATTEND Hospitalist
PROC: 0J973ZZ Drainage of Back Subcutaneous Tissue and Fascia, Percutaneous Approach (ICD-10-PCS; 2017-02-28)
PROC: 02HK3JZ Insertion of Pacemaker Lead into Right Ventricle, Percutaneous Approach (ICD-10-PCS; principal; 2017-03-02)
PROC: 0JH606Z Insertion of Pacemaker, Dual Chamber into Chest Subcutaneous Tissue and Fascia, Open Approach (ICD-10-PCS; principal; 2017-03-02)
PROC: 02H63JZ Insertion of Pacemaker Lead into Right Atrium, Percutaneous Approach (ICD-10-PCS; principal; 2017-03-02)
DX: I44.1 Atrioventricular block, second degree (principal); R55 Syncope and collapse; S12.591A Other nondisplaced fracture of sixth cervical vertebra, initial encounter for closed fracture; S00.432A Contusion of left ear, initial encounter; S40.019A Contusion of unspecified shoulder, initial encounter; W19.XXXA Unspecified fall, initial encounter; Y92.012 Bathroom of single-family (private) house as the place of occurrence of the external cause; Y99.8 Other external cause status; I48.0 Paroxysmal atrial fibrillation; Z79.82 Long term (current) use of aspirin; E87.1 Hypo-osmolality and hyponatremia; E86.0 Dehydration; H81.09 Meniere's disease, unspecified ear; I10 Essential (primary) hypertension; E78.5 Hyperlipidemia, unspecified; G47.33 Obstructive sleep apnea (adult) (pediatric); Z98.1 Arthrodesis status; Z96.651 Presence of right artificial knee joint; Z85.46 Personal history of malignant neoplasm of prostate
CPT/HCPCS: 92507-GN; 92523-GN; 97116-GP; 97162-GP; 97166-GO; 97530-GP; 97535-GO; C1769; G0378; G0480; G8978-GP-CK; G8979-GP-CI; G8987-GO-CJ; G8988-GO-CI; G8989-GO-CI; G9165-GN-CI; G9166-GN-CH; G9166-GN-CI; G9167-GN-CI; J1100; J1170; J1885; J2250; J2405; J2704; J3010; J3370; L0174; Q9967

== ENCOUNTER → 2017-03-28 | Outpatient (CLI) | payer OTHER | LOC: FIMAGING 11:47 | PROVIDERS: ATTEND Physician Assistant Surgical | DX: Z98.1 Arthrodesis status (principal) ==

== ENCOUNTER → 2017-04-05 | Outpatient (CLI) | payer OTHER | LOC: BHFA 10:45 | PROVIDERS: ATTEND Internal Medicine Cardiovascular Disease | DX: R06.00 Dyspnea, unspecified (principal) ==

== ENCOUNTER → 2017-04-26 | Outpatient (CLI) | payer OTHER | LOC: FIMAGING 13:40 | PROVIDERS: ATTEND Physician Assistant Surgical | DX: Z13.820 Encounter for screening for osteoporosis (principal); Z98.1 Arthrodesis status; Z85.46 Personal history of malignant neoplasm of prostate ==

== ENCOUNTER 2017-07-10 10:26 | Day surgery (SDC) | payer OTHER ==
--- NOTE | 2017-07-10 08:20 | PDANEPAE ---
ANE History of Present Illness 71 yo male with AFib for CV ANE Past Medical History - Cardiovascular History Hx Hypertension: Yes Hx Arrhythmias: Yes Hx Chest Pain: No Hx Coronary Artery / Peripheral Vascular Disease: Yes Hx CHF / Valvular Disease: No Hx Palpitations: Yes Cardiovascular History Comment: ABLATION 2007. s/p PM in April 2018 - Pulmonary History Hx COPD: No Hx Asthma/Reactive Airway Disease: No Hx Recent Upper Respiratory Infection: No Hx Oxygen in Use at Home: No Hx Sleep Apnea: Yes Pulmonary History Comment: NAHUM uses CPAP at night - Neurologic History Hx Cerebrovascular Accident: No Hx Seizures: No Hx Dementia: No - Endocrine History Hx Diabetes: No - Renal History Hx Renal Disorders: No - Liver History Hx Hepatic Disorders: No - Neurological & Psychiatric Hx Hx Neurological and Psychiatric Disorders: No - Cancer History Hx Cancer: Yes Cancer History Comment: PROSTATE - Congenital Disorder History Hx Congenital Disorders: Yes Congenital History Comment: CHEST SLIGHTLY CONCAVED - GI History Hx Gastrointestinal Disorders: No Gastrointestinal History Comment: PREV GERD - Other Health History Other Health History: BEG CATARACTS. SOME ECZEMA ON FEET AND ANKLES - Chronic Pain History Chronic Pain: Yes (RT KNEE) - Surgical History Prior Surgeries: SEPTOPLASTY. PROSTATECTOMY. LT SHLDR BICEPS TENDON. CERVICA FUSION 5-6. LUMBAR FUSION 4-5. HEART ABLATION 2007. TURP ANE Review of Systems Review of Systems: NO URI/fever x2 weeks - Systems Constitutional: Reports: no symptoms Respiratory: Reports: no symptoms Gastrointestinal: Reports: no symptoms ANE Patient History - Allergies Allergies/Adverse Reactions: amoxicillin [Amoxicillin] Allergy (Intermediate, Verified 10/19/09 11:25) RASH ON RIGHT DELTOID atorvastatin [From Lipitor] Allergy (Verified 07/10/17 11:18) morphine Allergy (Verified 04/12/13 09:46) GI - Home Medications Home medications: home medication list seen and reviewed Home Medications: Multivitamins [Multivitamin (*)] 1 tab PO DAILY 11/13/14 [Last Taken 07/09/17] [place]-3 Fatty Acids [Fish Oil 1000 mg (*)] 1,000 mg PO DAILY 11/13/14 [Last Taken 07/09/17] Simvastatin [Zocor 10 mg] 10 mg PO DAILY 11/13/14 [Last Taken 07/09/17] Herbals/Supplements -Info Only 1 ea PO DAILY 02/26/17 [Last Taken 07/09/17] Dabigatran Etexilate Mesyl [Pradaxa 150 MG (*)] 150 mg PO BID 07/07/17 [Last Taken 07/10/17] Propafenone HCl Sr [Rythmol Sr 225mg (*)] 225 mg PO BID 07/07/17 [Last Taken 05/18] Deyanira Allergy 07/10/17 [Last Taken 07/09/17] Nasacort 1 puffs 07/10/17 [Last Taken 07/09/17] - NPO status NPO Status: no food or drink >8 hours - Anes Hx Anes Hx: post operative nausea - Smoking Hx Smoking Status: Never smoked ANE Labs/Vital Signs - Labs Result Diagrams: 07/10/17 11:00 ANE Physical Exam - Airway Neck exam: FROM Mallampati Score: Class 2 Mouth exam: normal dental/mouth exam - Pulmonary Pulmonary: clear to auscultation - Cardiovascular Cardiovascular: irregularly irregular - ASA Status ASA Status: III ANE Anesthesia Plan Anesthesia Plan: GA with mask Total IV Anesthesia: Yes
[2017-07-10] MEDS ORDERED: NS 500 ML IV ONE (10:35)
[2017-07-10] MEDS ORDERED: ATROPINE SULFATE 1 MG/10 ML SYR IVP ONE (10:35)
[2017-07-10] MEDS ORDERED: BENZOCAINE UNIT DOSE SPRAY HURRICAINE MM ONE (10:35)
[2017-07-10] MEDS ORDERED: fentaNYL 100 MCG/2 ML INJ IVP ONE (10:35)
[2017-07-10] MEDS ORDERED: MIDAZOLAM 2 MG/2 ML VIAL IVP ONE (10:35)
--- NOTE | 2017-07-10 10:56 | CPEKG ---
Heart Rate: 74 RR Interval: 811 QRSD Interval: 84 QT Interval: 372 QTC Interval: 413 QRS [place]: 76 T Wave [place]: -50 EKG Severity - ABNORMAL ECG - EKG Impression: AFIB/FLUT AND V-PACED COMPLEXES EKG Impression: LOW VOLTAGE IN FRONTAL LEADS Electronically Signed By: Pee Bryan 10-Jul-2017 17:57:45
[2017-07-10 11:35] LABS: APTT 43.7 SEC (23.0-38.0); INR 1.4 (0.83-1.16); PROTIME(PATIENT) 17.1 SEC (12.0-15.0)
--- NOTE | 2017-07-10 11:40 | PDHPUP ---
History & Physical Update H&P update statement: This history and physical update is based on an assessment of the patient which was completed after admission or registration (within 24 hours), but prior to the surgery/procedure. H&P update: H&P reviewed & patient examined, no change in patient's condition since H&P completed
[2017-07-10 11:43] LABS: ANION GAP 10 mEq/L (8-16); CALCIUM 9.4 mg/dL (8.5-10.4); CARBON DIOXIDE 25 mEq/l (22-31); CHLORIDE 105 mEq/L (97-110); GLOMERULAR FILTRATION RATE > 60; GLUCOSE 90 mg/dL (70-100); MAGNESIUM 1.9 mg/dL (1.6-2.3); POTASSIUM 4.1 mEq/L (3.5-5.2); SODIUM 140 mEq/L (134-144)
[2017-07-10] MEDS ORDERED: LIDOCAINE 2% 5 ML SDV ONE (11:56)
[2017-07-10] MEDS ORDERED: PROPOFOL 200 MG/20 ML VIAL ONE (11:56)
--- NOTE | 2017-07-10 12:22 | PDTEE1 ---
DODIE Cardioversion Procedure Procedure: electrical cardioversion, transesophageal echo Indications: atrial fibrillation Anticoagulation: eliquis Procedural Details: Pads were placed in anterior-posterior position. DODIE probe was advanced and standard images obtained. There is no evidence of left atrial or left atrial appendage thrombus. Synchronized cardioversion attempt #1: 200J Results: normal sinus rhythm Conclusions: successful DODIE cardioversion Patient Problems: Problems Problem Status Onset Osteoarthritis of knee Acute Cervical spine fracture Acute Syncope and collapse Acute Hematoma Acute
[2017-07-10] MEDS ORDERED: NALOXONE HCL 0.4 MG/ML INJ IVP PRN (12:24)
[2017-07-10] MEDS ORDERED: ALBUTEROL 3 ML DEYVIAL IH PRN (12:24)
--- NOTE | 2017-07-10 12:24 | CPEKG ---
Heart Rate: 69 RR Interval: 870 P-R Interval: 252 QRSD Interval: 82 QT Interval: 368 QTC Interval: 395 P [place]: 83 QRS [place]: 49 T Wave [place]: -36 EKG Severity - ABNORMAL ECG - EKG Impression: ATRIAL-PACED COMPLEXES EKG Impression: FIRST DEGREE AV BLOCK EKG Impression: LOW VOLTAGE IN FRONTAL LEADS EKG Impression: BORDERLINE R WAVE PROGRESSION, ANTERIOR LEADS EKG Impression: ABNORMAL T, CONSIDER ISCHEMIA, INFERIOR LEADS Electronically Signed By: Pee Bryan 10-Jul-2017 17:57:40
--- NOTE | 2017-07-10 12:25 | POSTANESTH ---
Post Anesthetic Evaluation Cardiovascular Status: Normal, Stable Respiratory Status: Normal, Stable Level of Consciousness/Mental Status: Can Participate in Eval, Mildly Sleepy, Arousable Pain Control: Adequate, Prn Tx Ordered Nausea/Vomiting Control: Adequate, Prn Tx Ordered Complications Possibly Related to Anesthesia: None Noted
--- NOTE | 2017-07-12 22:17 | ECHO ---
[email or web address] [address] [address] Main: [phone] Fax: Transesophageal Echocardiography Name: RENETTA REYES MR#: [id number] Study Date: 07/10/2017 Study Time: 11:47 AM Date of : 1945 Age: 71 year(s) Height: ( ) Weight: ( ) BSA: Gender: Male Examination: DODIE Indication: pre-cardioversion; r/o clot Image Quality: Contrast: I.V. dose of agitated saline Requested by: Pee Bryan Heart Rate: Rhythm: Atrial fibrillation BP: / Procedure Staff Electronic Device Monitor: Leslie Danielle Reading Physician: Pee Bryan Requesting Provider: DODIE Exam Details Contrast: I.V. dose of agitated saline Conclusions: Normal global systolic LV function. The ejection fraction is visually estimated to be 65 %. There is a pacemaker lead noted in the right ventricle. An agitated saline study was performed and was negative for intracardiac shunting. No thrombus is noted in the left atrium. The left atrial appendage is multilobular. No thrombus in left appendage. There is a pacemaker lead noted in the right atrium. Mild mitral valve regurgitation is present. Mild tricuspid regurgitation is present. Measurements: Chambers Valvular Assessment AV/MV Valvular Assessment TV/PV Normal Normal Normal Name Value Range Name Value Range Name Value Range Visual EF: 65 % Additional Measurements: Findings: Left Ventricle: Normal size left ventricle. Normal global systolic LV function. The ejection fraction is visually Patient: RENETTA REYES Study Date: 07/10/2017 Page 1 of 2 11:47 AM estimated to be 65 %. Right Ventricle: Normal size right ventricle. Normal RV function. There is a pacemaker lead noted in the right ventricle. Left Atrium: An agitated saline study was performed and was negative for intracardiac shunting. No thrombus is noted in the left atrium. Left atrial enlargement.. Left Atrial Appendage: The left atrial appendage is multilobular. No thrombus in left appendage. Right Atrium: There is a pacemaker lead noted in the right atrium. Right atrial enlargement.. Mitral Valve: The mitral valve is normal in appearance. Mild mitral valve regurgitation is present. Aortic Valve: The aortic valve is tri-leaflet. Trivial aortic valve regurgitation. Tricuspid Valve: The tricuspid valve appears normal. Mild tricuspid regurgitation is present. Pulmonic Valve: The pulmonic valve is normal in appearance and function. Pericardium: No pericardial effusion. l1n (No Signature Object) Patient: RENETTA REYES Study Date: 07/10/2017 Page 2 of 2 11:47 AM [id number]
== END 2017-07-10 13:45 | disposition home or self-care (01) ==
LOC: FCATH 10:26
PROVIDERS: ATTEND Internal Medicine Cardiovascular Disease
PROC: B245ZZ4 Ultrasonography of Left Heart, Transesophageal (ICD-10-PCS; principal; 2017-07-10)
PROC: 5A2204Z Restoration of Cardiac Rhythm, Single (ICD-10-PCS; principal; 2017-07-10)
DX: I48.0 Paroxysmal atrial fibrillation (principal); I25.10 Atherosclerotic heart disease of native coronary artery without angina pectoris; E78.5 Hyperlipidemia, unspecified; I10 Essential (primary) hypertension; G47.33 Obstructive sleep apnea (adult) (pediatric); Z85.46 Personal history of malignant neoplasm of prostate
CPT/HCPCS: J0461; J2704

== ENCOUNTER → 2017-08-29 | Outpatient (CLI) | payer OTHER ==
[~2017-08-29] MED LIST: IOPAMIDOL (ISOVUE 370) 100 ML BTL IV ONE
== END ==
LOC: FIMAGING 09:52
PROVIDERS: ATTEND Internal Medicine Cardiovascular Disease
DX: I48.91 Unspecified atrial fibrillation (principal); K44.9 Diaphragmatic hernia without obstruction or gangrene
CPT/HCPCS: 75572; Q9967

== ENCOUNTER 2017-09-07 11:03 | Observation (INO) | payer OTHER ==
[2017-09-07] MEDS ORDERED: NS 1,000 ML IV ONE (11:10)
[2017-09-07 11:36] LABS: % IMMATURE GRANULYOCYTES 0.3 % (0.0-1.1); ABSOLUTE IMMATURE GRANULOCYTES 0.01 10^3/uL (0.00-0.10); ADD DIFF? NO; ADD MORPH? NO; ADD SCAN? NO; ATYPICAL LYMPHOCYTE FLAG 20 (0-99); FRAGMENT RBC FLAG 0 (0-99); HEMATOCRIT 48.4 % (40.0-51.0); HEMOGLOBIN 16.7 g/dL (13.7-17.5); LEFT SHIFT FLG 0 (0-99); LIPEMIA HEMOLYSIS FLAG 90 (0-99); MEAN CELL HEMOGLOBIN 33.8 pg (27.9-34.1); MEAN CELL HEMOGLOBIN CONCENTR. 34.5 g/dL (32.4-36.7); MEAN PLATELET VOLUME 10.2 fL (8.7-11.7); PLATELET CLUMPS FLAG 0 (0-99); PLATELET COUNT 179 10^3/uL (150-400); RED BLOOD CELL COUNT 4.94 10^6/uL (4.40-6.38); RED CELL DISTRIBUTION WIDTH 13.5 % (11.5-15.2)
--- NOTE | 2017-09-07 11:43 | CPEKG ---
Heart Rate: 79 RR Interval: 759 P-R Interval: 172 QRSD Interval: 146 QT Interval: 436 QTC Interval: 500 P [place]: 0 QRS [place]: -77 T Wave [place]: 92 EKG Severity - ABNORMAL ECG - EKG Impression: AFIB and VENTRICULAR-PACED RHYTHM Electronically Signed By: Pee Bryan 07-Sep-2017 16:16:09
[2017-09-07 11:45] LABS: INR 0.95 (0.83-1.16); PROTIME(PATIENT) 12.9 SEC (12.0-15.0)
[2017-09-07 12:03] LABS: ANION GAP 14 mEq/L (8-16); CALCIUM 9.8 mg/dL (8.5-10.4); CARBON DIOXIDE 26 mEq/l (22-31); CHLORIDE 105 mEq/L (97-110); GLOMERULAR FILTRATION RATE > 60; GLUCOSE 91 mg/dL (70-100); POTASSIUM 4.2 mEq/L (3.5-5.2); SODIUM 145 mEq/L (134-144)
[2017-09-07] MEDS ORDERED: LIDOCAINE 1% 300 MG/30 ML SDV ONE (12:32)
[2017-09-07] MEDS ORDERED: BUPIVACAINE 0.5% 30 ML SDV ONE (12:32)
[2017-09-07] MEDS ORDERED: HEPARIN 10,000 UNIT/10 ML MDV ONE (12:32)
[2017-09-07] MEDS ORDERED: HEPARIN/DEXTROSE 25,000 UNIT/500 ML BAG ONE (12:32)
[2017-09-07] MEDS ORDERED: IOPAMIDOL (ISOVUE-300) 100 ML BTL ONE (12:33)
--- NOTE | 2017-09-07 12:33 | PDGENHP ---
History & Physical Chief Complaint: Symptomatic AFIB History of Present Illness: AFIB Pertinent Past, Social, Family History: Pacemaker for SSS Relevant Physical Exam: [id number]. cta. ao3 Cardiorespiratory Assessment: Symptomatic AFIB despite Rythmol. For CB PVI.
[2017-09-07] MEDS ORDERED: MIDAZOLAM 2 MG/2 ML VIAL IVP ONE (12:48)
--- NOTE | 2017-09-07 12:48 | PDANEPAE ---
ANE History of Present Illness ep ANE Past Medical History - Cardiovascular History Hx Hypertension: Yes Hx Arrhythmias: Yes Hx Chest Pain: No Hx Coronary Artery / Peripheral Vascular Disease: Yes Hx CHF / Valvular Disease: No Hx Palpitations: Yes Cardiovascular History Comment: ABLATION 2007. s/p PM in April 2018 - Pulmonary History Hx COPD: No Hx Asthma/Reactive Airway Disease: No Hx Recent Upper Respiratory Infection: No Hx Oxygen in Use at Home: No Hx Sleep Apnea: Yes Pulmonary History Comment: NAHUM uses CPAP at night - Neurologic History Hx Cerebrovascular Accident: No Hx Seizures: No Hx Dementia: No - Endocrine History Hx Diabetes: No - Renal History Hx Renal Disorders: No - Liver History Hx Hepatic Disorders: No - Neurological & Psychiatric Hx Hx Neurological and Psychiatric Disorders: No - Cancer History Hx Cancer: Yes Cancer History Comment: PROSTATE - Congenital Disorder History Hx Congenital Disorders: Yes Congenital History Comment: CHEST SLIGHTLY CONCAVED - GI History Hx Gastrointestinal Disorders: No Gastrointestinal History Comment: PREV GERD - Other Health History Other Health History: BEG CATARACTS. SOME ECZEMA ON FEET AND ANKLES - Chronic Pain History Chronic Pain: Yes (RT KNEE) - Surgical History Prior Surgeries: SEPTOPLASTY. PROSTATECTOMY. LT SHLDR BICEPS TENDON. CERVICA FUSION 5-6. LUMBAR FUSION 4-5. HEART ABLATION 2007. TURP ANE Review of Systems Review of Systems: - Exercise capacity Exercise capacity: unable to assess METS (RN): 4 METS ANE Patient History - Allergies Allergies/Adverse Reactions: amoxicillin [Amoxicillin] Allergy (Intermediate, Verified 10/19/09 11:25) RASH ON RIGHT DELTOID atorvastatin [From Lipitor] Allergy (Verified 07/10/17 11:18) - Home Medications Home Medications: Multivitamins [Multivitamin (*)] 1 tab PO DAILY 11/13/14 [Last Taken 07/09/17] [place]-3 Fatty Acids [Fish Oil 1000 mg (*)] 1,000 mg PO DAILY 11/13/14 [Last Taken 07/09/17] Simvastatin [Zocor 10 mg] 10 mg PO DAILY18 11/13/14 [Last Taken 07/09/17] Herbals/Supplements -Info Only 1 ea PO DAILY 02/26/17 [Last Taken 07/09/17] Propafenone HCl Sr [Rythmol Sr 225mg (*)] 225 mg PO BID 07/07/17 [Last Taken 05/18] Fexofenadine HCl [Deyanira Allergy] 60 mg PO DAILY PRN #0 07/10/17 [Last Taken ] Triamcinolone Acetonide [Nasacort] 1 spray NS DAILY PRN #0 07/10/17 [Last Taken 07/09/17] Apixaban [Eliquis] 5 mg PO BID 08/29/17 [Last Taken Unknown] Cholecalciferol Vit D3 [Vitamin D3 (*)] 2,500 units PO DAILY 08/29/17 [Last Taken Unknown] - Smoking Hx Smoking Status: Never smoked ANE Labs/Vital Signs - Labs Result Diagrams: 09/07/17 11:28 09/07/17 11:28 ANE Physical Exam - Airway Mallampati Score: Class 2 Mouth exam: normal dental/mouth exam - Pulmonary Pulmonary: no respiratory distress - Cardiovascular Cardiovascular: irregularly irregular - ASA Status ASA Status: III ANE Anesthesia Plan Anesthesia Plan: general endotracheal anesthesia
[2017-09-07] MEDS ORDERED: LIDOCAINE 2% 5 ML SDV ONE (13:05)
[2017-09-07] MEDS ORDERED: DEXAMETHASONE 4 MG/ML VIAL ONE (13:05)
[2017-09-07] MEDS ORDERED: ROCURONIUM 50 MG/5 ML VIAL ONE (13:05)
[2017-09-07] MEDS ORDERED: fentaNYL 100 MCG/2 ML INJ ONE (13:05)
[2017-09-07] MEDS ORDERED: ONDANSETRON 4 MG/2 ML VIAL ONE (13:05)
[2017-09-07] MEDS ORDERED: PROPOFOL 200 MG/20 ML VIAL ONE (13:05)
[2017-09-07] MEDS ORDERED: PHENYLEPHRINE HCL 100 MCG/ML SYR ONE (13:40)
[2017-09-07] MEDS ORDERED: PHENYLEPHRINE 10 MG/ML SDV ONE ×2 (13:46)
[2017-09-07] MEDS ORDERED: PROTAMINE SULFATE 50 MG/5 ML VIAL IVP ONE (15:18)
[2017-09-07] MEDS ORDERED: SUGAMMADEX SODIUM 200 MG/2 ML VIAL IVP ONE (15:33)
[2017-09-07] MEDS ORDERED: OXYCODONE/APAP 5/325 TAB PO PRN (15:57)
[2017-09-07] MEDS ORDERED: ACETAMINOPHEN 325 MG TAB PO PRN (15:57)
[2017-09-07] MEDS ORDERED: ONDANSETRON 4 MG/2 ML VIAL IVP PRN ×2 (15:57→16:04)
[2017-09-07] MEDS ORDERED: NS 500 ML IV PRN (16:04)
[2017-09-07] MEDS ORDERED: NALOXONE HCL 0.4 MG/ML INJ IVP PRN (16:04)
[2017-09-07] MEDS ORDERED: fentaNYL 100 MCG/2 ML INJ IVP PRN (16:04)
[2017-09-07] MEDS ORDERED: ALBUTEROL 3 ML DEYVIAL IH PRN (16:04)
--- NOTE | 2017-09-07 16:04 | POSTANESTH ---
Post Anesthetic Evaluation Cardiovascular Status: Normal, Stable Respiratory Status: Normal, Stable Level of Consciousness/Mental Status: Can Participate in Eval Pain Control: Adequate, Prn Tx Ordered Nausea/Vomiting Control: Adequate, Prn Tx Ordered Complications Possibly Related to Anesthesia: None Noted
--- NOTE | 2017-09-07 16:07 | EPPROC ---
Electrophysiology Procedure Note: ELECTROPHYSIOLOGIC STUDY AND BALLOON-CATHETER MEDIATED CRYOABLATION FOR PAROXYSMAL ATRIAL FIBRILLATION Procedures performed: 45226-77 EP evaluation with RA/RV/LA pace/record, with arrhythmia induction 13896-60 EP evaluation with RA/RV pace record, insert/reposition catheter, with arrhythmia induction 85338 Atrial fibrillation ablation Intracardiac echocardiogram Transseptal puncture Fluoroscopy INDICATION: Paroxysmal atrial fibrillation PROCEDURE: The patient arrived in the Electrophysiology Laboratory in the fasting state. The right groin, left groin and right infraclavicular area were prepped and draped in the usual sterile fashion. Anesthesiologist administered general anesthesia Dr. Tiburcio Salazar . All catheters were placed percutaneously using the Seldinger technique and advanced into position under fluoroscopic guidance. One #7 Yoruba deflectable octapolar electrode catheter was placed in the His-bundle position via the left femoral vein (2mm spacing, IVC electrode for unipolar recordings). This catheter was placed in the coronary sinus after transseptal puncture and later placed in the SVC-R subclavian vein junction to pace the right phrenic nerve during right pulmonary vein ablation. One #8 Yoruba AcuNaV ultrasound catheter was placed in the left femoral vein and advanced into the right atrium. One #4 Yoruba sheath was inserted into the left femoral artery via percutaneous technique and used for continuous arterial blood pressure monitoring and intermittent ACT determination. Programmed stimulation was performed from the right atrium, left atrium (CS) and right ventricle. There was no evidence of AV accessory pathway. Intracardiac echo evaluation of the left atrium and pulmonary veins was performed. Baseline ACT was drawn and heparin bolus was administered and heparin drip was started prior to transseptal puncture. ACT was checked every 15 minutes and maintained in the range of 350-400 seconds. One 14Fr short sheath was placed in the right femoral vein. One 8Fr SL1 sheath was advanced into the right atrium via the 14Fr short sheath. Transseptal puncture was performed under intracardiac ultrasound, fluoroscopic and hemodynamic guidance placing the sheath into the left atrium. [place] RF needle ( C0 curve) was used. The mean left atrial pressure was 8 mmHg. Pulmonary vein angiogram was done using SL1 sheath. CT angiography of pulmonary veins was done previously. There was left common vein, RSPV and RIPV. The SL1 sheath was exchanged for a [employer]tronic Flexcath sheath using an Amplatz stiff guide wire. A 28 mm Cryoballoon catheter with a 20 mm Achieve catheter was placed via the sheath into the left atrium. Intracardiac ultrasound and PV angiograms were used to assist in placing the mapping catheter at the antrum of the pulmonary veins. 3D mapping was performed using Pentaray catheter and CartoMerge was used for LA and PVs. All pulmonary veins were isolated successfully using cryoballoon ablation using freeze/thaw/freeze cycles at 2-3-minute intervals, with good [id number] of isolation. LCV was isolated segmentally with 3 lesions. Coumadin ridge/ Ligament of Seb region was ablated. Pre and post pulmonary vein recordings were measured on the spiral Achieve catheter to ensure complete pulmonary vein isolation. During the right-sided ablation, phrenic nerve pacing was performed to assess the phrenic nerve strength (manually and with ICE visualization of liver movement during phrenic capture) and the phrenic nerve was intact throughout the right-sided ablation and at the end of the procedure. An esophageal temperature probe (12 electrode, Circa) was placed by the anesthesiologist at the beginning of the procedure. Esophageal temperature was monitored continuously and cryoablation was interrupted if esophageal temperature was <15 C. Cryoapplications 8 total cryoablation time 1205 s. ICE imaging post ablation was consistent with pre ablation imaging with no changes noted, moreover there was no left atrial/left ventricular thrombus and no pericardial effusion. The catheters were withdrawn. Protamine was given. The sheaths were removed and manual pressure was used for hemostasis. The patient was recovered from anesthesia. There were no complications. The patient was arousable and moving all four extremities at the end of the procedure. CONCLUSIONS: 1. Paroxysmal atrial fibrillation. 2. Successful pulmonary vein isolation procedure (left and right pulmonary vein antrum) using cryoballoon ablation. 3. No apparent complications. Patient Problems: Problems Problem Status Onset Atrial fibrillation Acute Osteoarthritis of knee Acute Cervical spine fracture Acute Syncope and collapse Acute Hematoma Acute
--- NOTE | 2017-09-07 16:41 | CPEKG ---
Heart Rate: 70 RR Interval: 857 P-R Interval: 283 QRSD Interval: 84 QT Interval: 392 QTC Interval: 423 QRS [place]: 84 T Wave [place]: -66 EKG Severity - ABNORMAL ECG - EKG Impression: ATRIAL-PACED RHYTHM EKG Impression: LOW VOLTAGE THROUGHOUT EKG Impression: BORDERLINE R WAVE PROGRESSION, ANTERIOR LEADS EKG Impression: ABNORMAL T, PROBABLE ISCHEMIA, INFERIOR LEADS (likely T wave memory related to EKG Impression: V pacing) Electronically Signed By: Pee Bryan 08-Sep-2017 08:33:55
[2017-09-07 17:14] LABS: ANION GAP 9 mEq/L (8-16); CALCIUM 8.3 mg/dL (8.5-10.4); CARBON DIOXIDE 24 mEq/l (22-31); CHLORIDE 108 mEq/L (97-110); CREATININE 0.9 mg/dL (0.7-1.3); GLOMERULAR FILTRATION RATE > 60; GLUCOSE 125 mg/dL (70-100); MAGNESIUM 1.9 mg/dL (1.6-2.3); POTASSIUM 4.2 mEq/L (3.5-5.2); SODIUM 141 mEq/L (134-144)
[2017-09-07] MEDS ORDERED: NON-FORMULARY NEW DRUG (Simvastatin [Zocor 10 Mg] 10 MG) PO SCH (18:00)
[2017-09-07] MEDS ORDERED: SIMVASTATIN 10 MG PO SCH ×2 (18:00)
[2017-09-07] MEDS ORDERED: ENOXAPARIN 60 MG/0.6 ML SYR SC SCH (22:00)
[2017-09-08] MEDS ORDERED: ENOXAPARIN 60 MG/0.6 ML SYR SC SCH (01:30)
[2017-09-08 06:34] VITALS: O2SAT 94
[2017-09-08 06:39] LABS: % IMMATURE GRANULYOCYTES 0.3 % (0.0-1.1); ABSOLUTE IMMATURE GRANULOCYTES 0.02 10^3/uL (0.00-0.10); ADD DIFF? NO; ADD MORPH? NO; ADD SCAN? NO; ATYPICAL LYMPHOCYTE FLAG 0 (0-99); FRAGMENT RBC FLAG 0 (0-99); HEMATOCRIT 41.9 % (40.0-51.0); HEMOGLOBIN 14.5 g/dL (13.7-17.5); LEFT SHIFT FLG 0 (0-99); LIPEMIA HEMOLYSIS FLAG 90 (0-99); MEAN CELL HEMOGLOBIN 33.4 pg (27.9-34.1); MEAN CELL HEMOGLOBIN CONCENTR. 34.6 g/dL (32.4-36.7); MEAN CELL VOLUME 96.5 fL (81.5-99.8); MEAN PLATELET VOLUME 10.7 fL (8.7-11.7); PLATELET CLUMPS FLAG 0 (0-99); PLATELET COUNT 154 10^3/uL (150-400); RED BLOOD CELL COUNT 4.34 10^6/uL (4.40-6.38); RED CELL DISTRIBUTION WIDTH 13.6 % (11.5-15.2)
[2017-09-08 06:48] LABS: INR 1.14 (0.83-1.16); PROTIME(PATIENT) 14.8 SEC (12.0-15.0)
[2017-09-08 07:06] LABS: ANION GAP 10 mEq/L (8-16); CALCIUM 8.9 mg/dL (8.5-10.4); CARBON DIOXIDE 24 mEq/l (22-31); CHLORIDE 108 mEq/L (97-110); CREATININE 0.9 mg/dL (0.7-1.3); GLOMERULAR FILTRATION RATE > 60; GLUCOSE 104 mg/dL (70-100); POTASSIUM 4.4 mEq/L (3.5-5.2); SODIUM 142 mEq/L (134-144)
[2017-09-08 07:16] LABS: CK-MB INTERPRETATION POSITIVE (NEGATIVE)
--- NOTE | 2017-09-08 08:36 | CPEKG ---
Heart Rate: 89 RR Interval: 674 QRSD Interval: 78 QT Interval: 332 QTC Interval: 404 QRS [place]: 80 T Wave [place]: -78 EKG Severity - ABNORMAL ECG - EKG Impression: AFIB/FLUT AND V-PACED COMPLEXES EKG Impression: LOW VOLTAGE IN FRONTAL LEADS EKG Impression: SINUS TACHYCARDIA EKG Impression: DIFFUSE ST TWAVE ABNORMALITY SUGGESTIVE OF ISCHEMIA Electronically Signed By: Kieran Hicks 08-Sep-2017 20:56:24
[2017-09-08] MEDS ORDERED: CETIRIZINE 10 MG TAB PO PRN (09:00)
[2017-09-08] MEDS ORDERED: PROPAFENONE HCL SR 225 MG CAP PO SCH (10:15)
[2017-09-08] MEDS ORDERED: APIXABAN 5 MG TAB PO SCH (11:00)
--- NOTE | 2017-09-08 11:59 | ECHO ---
[email or web address] [address] [address] Main: [phone] Fax: Transthoracic Echocardiogram Name: RENETTA REYES MR#: [id number] Study Date: 09/08/2017 Study Time: 09:01 AM Date of : 1945 Age: 71 year(s) Height: 175.3 cm (69 in.) Weight: 63.96 kg (141 lb.) BSA: 1.78 m2 Gender: Male Examination: Echo Indication: Post EP, Pacemaker Image Quality: Contrast: Requested by: Pee Bryan BP: 110 mmHg/68 mmHg Heart Rate: Rhythm: Atrial fibrillation Indication: Post EP, Pacemaker Procedure Staff Dietetic Intern: Emiliano Craig Reading Physician: Pee Bryan Requesting Provider: Conclusions: Normal global systolic LV function. Normal diastolic LV function. There is a pacemaker lead noted in the right ventricle. No pericardial effusion. Measurements: Chambers Valvular Assessment AV/MV Valvular Assessment TV/PV Normal Normal Normal Name Value Range Name Value Range Name Value Range Ao Ida (MM): 2.7 cm (2.2 cm-3.7 AV Vmax: 1.19 m/s (1 m/s-1.7 TR Vmax: 2.66 mm/s ( - ) cm) m/s) TR PGmax: 28 mmHg ( - ) IVSd (2D): 0.8 cm (0.6 cm-1.1 AV maxP mmHg ( - ) syst. PAP: 33 mmHg ( - ) cm) LVOT Vmax: 0.99 m/s (0.7 m/s-1.1 PV Vmax: 0.92 m/s (0.6 m/s-0.9 LVDd (2D): 3.9 cm (4.2 cm-5.9 m/s) m/s) cm) MV E Vmax: 1.05 m/s ( - ) PV PGmax: 3 mmHg ( - ) LVDs (2D): 2.4 cm (2.1 cm-4 MV A Vmax: 0.31 m/s ( - ) cm) MV E/A: 3.39 ( - ) LVPWd (2D): 0.9 cm (0.6 cm-1 cm) LVEF (2D): 68 (>=54 %) Continued Measurements: Chambers Valvular Assessment AV/MV Valvular Assessment TV/PV Name Value Name Value Name Value LADs Lon.1 cm MV E' Septal: 0.15 m/s CVP (est.): 5 mmHg LA Area: 16.7 cm2 MV E/E' Septal: 6.90 LA Volume: 37 ml MV E/E' Lateral: 5.70 LA Volume Index: 20.8 ml/m2 Patient: RENETTA REYES Study Date: 09/08/2017 Page 1 of 2 09:01 AM Findings: Left Ventricle: Normal size left ventricle. No LV hypertrophy. Normal global systolic LV function. EF is 68 %. No regional wall motion abnormality. Normal diastolic LV function. The rhythm is atrial fibrillation.. Right Ventricle: Upper normal size right ventricle. Normal RV function. There is a pacemaker lead noted in the right ventricle. Left Atrium: The left atrium is normal in size. Right Atrium: The right atrium is normal in size. Mitral Valve: The mitral valve is normal in appearance and function. Trivial mitral valve regurgitation. Aortic Valve: The aortic valve is tri-leaflet. The aortic valve is normal in appearance and function. Tricuspid Valve: The tricuspid valve is normal in appearance and function. Pulmonic Valve: Pulmonary valve not well visualized. Aorta: The aorta is normal. Pericardium: No pericardial effusion. (No Signature Object) Patient: RENETTA REYES Study Date: 09/08/2017 Page 2 of 2 09:01 AM D:_[id number]
--- NOTE | 2017-09-08 12:00 | ASMTCASEMG ---
Living Arrangements What is your living Answers: With Spouse arrangement? Who do you live with? Type Of Residence What kind of residence do Answers: House you live in? Discharge Plan Comments Coordination Status Comments Notes: Patient is a 71yo male who was admitted for an electrophysiologic study and balloon-catheter mediated cryoablation. No therapies are ordered. Patient most likely will d/c independent with some outpatient cardiac rehab. CM available if needs arise. Date Signed: 09/08/2017 12:00 PM Electronically Signed By:Jacinta Gamez LCSW
[2017-09-08 13:46] VITALS: BP 111/71; PULSE 82; RESP 97; TEMP 98.8
--- NOTE | 2017-09-08 17:13 | ASDISCHSUM ---
Discharge Information Plan Status:Home with No Needs Medically Cleared to Leave:09/07/2017 Discharge Date:09/08/2017 02:06 PM CM D/C Disposition:Home, Routine, Self-Care ADT D/C Disposition:Home, Routine, Self-Care Projected Discharge Date:09/08/2017 12:00 AM Transportation at D/C: Discharge Delay Reason: Follow-Up Date:09/08/2017 12:00 AM Discharge Slot: Final Diagnosis: Placement Information Patient Contact Information Contact Name:RAMBO Relationship: Address:[address] City:[place] Alternate Phone: [facility]/Zip Code:[place] [address] Email: Financial Information Financial Class: Primary Plan Desc:MEDICARE OUTPATIENT Primary Plan Number:[id number] Secondary Plan Desc:[employer] MEDICARE SUPPLIMENT Secondary Plan Number:[id number] Assessment Information [facility] Initial CM Assessment Living Arrangements What is your living Answers: With Spouse arrangement? Who do you live with? Type Of Residence What kind of residence do Answers: House you live in? Discharge Plan Comments Coordination Status Comments Notes: Patient is a 71yo male who was admitted for an electrophysiologic study and balloon-catheter mediated cryoablation. No therapies are ordered. Patient most likely will d/c independent with some outpatient cardiac rehab. CM available if needs arise. Date Signed: 09/08/2017 12:00 PM Electronically Signed By:Jacinta Gamez LCSW Intervention Information Intervention Type:*Incorrect Registration Date of Service:09/07/2017 05:28 PM Patient Type:Inpatient Staff Member:YG Michelle, Linnea Hours: Discipline: Severity: Comment:
--- NOTE | 2017-09-08 23:40 | GDS ---
[f rep st] DISCHARGE SUMMARY DISCHARGE DIAGNOSES: 1. Atrial fibrillation. 2. Status post atrial fibrillation ablation. 3. History of dual-chamber pacemaker. BRIEF HISTORY: This is a 71-year-old man who has had a prior ablation for atrial flutter in 2007. He has also had a dual-chamber pacemaker implanted for sinus node dysfunction resulting in syncope. He continued to experience atrial fibrillation despite taking high-dose Rythmol. HOSPITAL COURSE: Dr. Bryan performed successful pulmonary vein isolation procedure using cryo balloon ablation. There were no complications. Patient went into atrial fibrillation or atrial tachycardia last evening around 8 p.m. He is unaware of his rhythm. He denies any kind of chest pain, chest pressure, or shortness of breath. Denies any groin pain. TESTING DONE: Echocardiogram demonstrates ejection fraction of 68% with no wall motion abnormalities. He is in atrial fibrillation. There is no pericardial effusion. A 12-lead EKG demonstrates atrial fibrillation or atrial tachycardia with V pacing and V sensing. Pacemaker interrogation demonstrated normal function. LAB WORK: WBC is 7.55, hemoglobin 14.5, hematocrit 41.9, platelets 154. Sodium 142, potassium 4.4, chloride 108, bicarb 24, BUN 20, creatinine 0.9, glucose 104. CK 328. MB fraction 33.5. CK-MB percent 10.2. Troponin is 10.4. These cardiac enzymes are elevated and to be expected post ablation. PHYSICAL EXAMINATION: VITAL SIGNS: Blood pressure is 99/61, pulse is 75, respirations 17, temperature 36.9, O2 saturation is 94% on room air. GENERAL: He is alert and oriented. He is in no acute distress. Lying in bed. CARDIAC: Irregular without murmur, rub, or gallop. LUNGS: Clear to auscultation. ABDOMEN: Soft and nontender. GROIN: Groin sites are without bleeding. One stitch was removed from the right femoral vein site without problem. Moderate amount of echymosis on left lateral thigh. EXTREMITIES: Lower extremities are warm. No discoloration. Bilateral +2 pedal pulses. DISCHARGE INSTRUCTIONS: Post ablation activity restrictions were reviewed verbally with patient and he was given written instructions at the time of discharge. Of note, he is in atrial fibrillation or atrial tachycardia with controlled ventricular rates and relatively asymptomatic. We will check his home monitor for his pacemaker on Monday, and if he is still in this atrial arrhythmia, he will be scheduled for a cardioversion on Monday. DISCHARGE MEDICATIONS: Please see discharge medication reconciliation. Of note , his Rythmol was restarted, and he was given his morning dose of Eliquis prior to discharge and will continue his usual twice daily dosing. FOLLOWUP: He has a followup scheduled with Dr. Bryan on September 20 at 3 o' clock. /[id number]/MODL MTDD
== END 2017-09-08 14:06 | disposition home or self-care (01) ==
LOC: FCATH 11:03 → INTOOBSV 15:57 → F2N 15:57
PROVIDERS: ADMIT Internal Medicine Cardiovascular Disease; ATTEND Internal Medicine Cardiovascular Disease
PROC: 025L3ZZ Destruction of Left Ventricle, Percutaneous Approach (ICD-10-PCS; principal; 2017-09-07)
PROC: 02563ZZ Destruction of Right Atrium, Percutaneous Approach (ICD-10-PCS; principal; 2017-09-07)
PROC: 02573ZZ Destruction of Left Atrium, Percutaneous Approach (ICD-10-PCS; principal; 2017-09-07)
PROC: 025T3ZZ Destruction of Left Pulmonary Vein, Percutaneous Approach (ICD-10-PCS; principal; 2017-09-07)
PROC: 02K83ZZ Map Conduction Mechanism, Percutaneous Approach (ICD-10-PCS; principal; 2017-09-07)
PROC: 025S3ZZ Destruction of Right Pulmonary Vein, Percutaneous Approach (ICD-10-PCS; principal; 2017-09-07)
PROC: B244YZZ Ultrasonography of Right Heart using Other Contrast (ICD-10-PCS; principal; 2017-09-07)
DX: I48.0 Paroxysmal atrial fibrillation (principal); Z95.0 Presence of cardiac pacemaker
CPT/HCPCS: 93005; 93306; 93613; 93656; 93662; C1730; C1731; C1732; C1733; C1759; C1766; C1893; J1100; J1644; J1650; J2250; J2370; J2405; J2704; J2720; J3010; Q9967

== ENCOUNTER 2017-09-13 10:09 | Day surgery (SDC) | payer OTHER ==
[2017-09-13] MEDS ORDERED: fentaNYL 100 MCG/2 ML INJ IVP ONE (10:14)
[2017-09-13] MEDS ORDERED: BENZOCAINE UNIT DOSE SPRAY HURRICAINE MM ONE (10:14)
[2017-09-13] MEDS ORDERED: MIDAZOLAM 2 MG/2 ML VIAL IVP ONE (10:14)
[2017-09-13] MEDS ORDERED: NS 500 ML IV ONE (10:14)
[2017-09-13] MEDS ORDERED: ATROPINE SULFATE 1 MG/10 ML SYR IVP ONE (10:14)
--- NOTE | 2017-09-13 10:32 | CPEKG ---
Heart Rate: 85 RR Interval: 706 QRSD Interval: 80 QT Interval: 340 QTC Interval: 405 QRS [place]: 79 T Wave [place]: -66 EKG Severity - ABNORMAL ECG - EKG Impression: AFIB/FLUT AND V-PACED COMPLEXES EKG Impression: LOW VOLTAGE IN FRONTAL LEADS Electronically Signed By: Pee Bryan 13-Sep-2017 11:14:34
[2017-09-13 10:54] LABS: INR 1.23 (0.83-1.16); PROTIME(PATIENT) 15.7 SEC (12.0-15.0)
[2017-09-13 10:55] LABS: APTT 27.5 SEC (23.0-38.0)
[2017-09-13 11:02] LABS: ANION GAP 13 mEq/L (8-16); CALCIUM 9.6 mg/dL (8.5-10.4); CARBON DIOXIDE 26 mEq/l (22-31); CHLORIDE 104 mEq/L (97-110); CREATININE 1.1 mg/dL (0.7-1.3); GLOMERULAR FILTRATION RATE > 60; GLUCOSE 96 mg/dL (70-100); POTASSIUM 4.3 mEq/L (3.5-5.2); SODIUM 143 mEq/L (134-144)
--- NOTE | 2017-09-13 11:32 | PDGENHP ---
History & Physical Chief Complaint: symptomatic AFIB Relevant Physical Exam: s1s2 irreg. cta. ao3 Cardiorespiratory Assessment: symptomatic AFIB for DODIE guided CV. sp CB ablation last week
--- NOTE | 2017-09-13 11:32 | PDANEPAE ---
ANE History of Present Illness Afib ANE Past Medical History - Cardiovascular History Hx Hypertension: Yes Hx Arrhythmias: Yes Hx Chest Pain: No Hx Coronary Artery / Peripheral Vascular Disease: Yes Hx CHF / Valvular Disease: No Hx Palpitations: Yes Cardiovascular History Comment: ABLATION 2007. s/p PM in April 2018 - Pulmonary History Hx COPD: No Hx Asthma/Reactive Airway Disease: No Hx Recent Upper Respiratory Infection: No Hx Oxygen in Use at Home: No Hx Sleep Apnea: Yes Pulmonary History Comment: NAHUM uses CPAP at night - Neurologic History Hx Cerebrovascular Accident: No Hx Seizures: No Hx Dementia: No - Endocrine History Hx Diabetes: No - Renal History Hx Renal Disorders: No - Liver History Hx Hepatic Disorders: No - Neurological & Psychiatric Hx Hx Neurological and Psychiatric Disorders: No - Cancer History Hx Cancer: Yes Cancer History Comment: PROSTATE - Congenital Disorder History Hx Congenital Disorders: Yes Congenital History Comment: CHEST SLIGHTLY CONCAVED - GI History Hx Gastrointestinal Disorders: No Gastrointestinal History Comment: PREV GERD - Other Health History Other Health History: BEG CATARACTS. SOME ECZEMA ON FEET AND ANKLES - Chronic Pain History Chronic Pain: Yes (RT KNEE) - Surgical History Prior Surgeries: SEPTOPLASTY. PROSTATECTOMY. LT SHLDR BICEPS TENDON. CERVICA FUSION 5-6. LUMBAR FUSION 4-5. HEART ABLATION 2007. TURP ANE Review of Systems Review of systems is: negative Review of Systems: - Exercise capacity Exercise capacity: >=4 METS ANE Patient History - Allergies Allergies/Adverse Reactions: amoxicillin [Amoxicillin] Allergy (Intermediate, Verified 10/19/09 11:25) RASH ON RIGHT DELTOID atorvastatin [From Lipitor] Allergy (Verified 07/10/17 11:18) morphine Allergy (Uncoded 09/07/17 16:16) - Home Medications Home Medications: Multivitamins [Multivitamin (*)] 1 tab PO DAILY 11/13/14 [Last Taken 07/09/17] [place]-3 Fatty Acids [Fish Oil 1000 mg (*)] 1,000 mg PO DAILY 11/13/14 [Last Taken 07/09/17] Simvastatin [Zocor 10 mg] 10 mg PO DAILY18 11/13/14 [Last Taken 07/09/17] Herbals/Supplements -Info Only 1 ea PO DAILY 02/26/17 [Last Taken 07/09/17] Propafenone HCl Sr [Rythmol Sr 225mg (*)] 225 mg PO BID 07/07/17 [Last Taken 05/18] Fexofenadine HCl [Deyanira Allergy] 60 mg PO DAILY PRN #0 07/10/17 [Last Taken ] Triamcinolone Acetonide [Nasacort] 1 spray NS DAILY PRN #0 07/10/17 [Last Taken 07/09/17] Apixaban [Eliquis] 5 mg PO BID 08/29/17 [Last Taken Unknown] Cholecalciferol Vit D3 [Vitamin D3 (*)] 2,500 units PO DAILY 08/29/17 [Last Taken Unknown] - NPO status NPO Status: no food or drink >8 hours - Anes Hx Anes Hx: no prior problems - Smoking Hx Smoking Status: Never smoked - Alcohol Use Alcohol Use: Rarely - Family Anes Hx Family Anes Hx: none (1/wk) ANE Labs/Vital Signs - Labs Result Diagrams: 09/13/17 10:25 - Vital Signs Vital Signs: reviewed preoperatively; see RN documention for details Height: 175.26 cm Weight: 64.41 kg ANE Physical Exam - Airway Neck exam: FROM Mallampati Score: Class 1 Mouth exam: normal dental/mouth exam - Pulmonary Pulmonary: no respiratory distress - Cardiovascular Cardiovascular: irregularly irregular - ASA Status ASA Status: III ANE Anesthesia Plan Anesthesia Plan: GA with mask
[2017-09-13] MEDS ORDERED: PROPOFOL 200 MG/20 ML VIAL ONE (11:35)
[2017-09-13] MEDS ORDERED: LIDOCAINE 1% 5 ML SDV ONE (11:35)
--- NOTE | 2017-09-13 12:19 | PDTEE1 ---
DODIE Cardioversion Procedure Procedure: electrical cardioversion, transesophageal echo Indications: atrial fibrillation Consent: signed and in chart Anticoagulation: eliquis Procedural Details: Pads were placed in anterior-posterior position. DODIE probe was advanced and standard images obtained. There is no evidence of left atrial or left atrial appendage thrombus. Synchronized cardioversion attempt #1: 100J Results: normal sinus rhythm Conclusions: successful DODIE cardioversion Patient Problems: Problems Problem Status Onset Atrial fibrillation Acute Osteoarthritis of knee Acute Cervical spine fracture Acute Syncope and collapse Acute Hematoma Acute
--- NOTE | 2017-09-13 12:24 | CPEKG ---
Heart Rate: 74 RR Interval: 811 P-R Interval: 264 QRSD Interval: 80 QT Interval: 372 QTC Interval: 413 QRS [place]: 70 T Wave [place]: -59 EKG Severity - ABNORMAL ECG - EKG Impression: ATRIAL-PACED COMPLEXES EKG Impression: FIRST DEGREE AV BLOCK EKG Impression: LOW VOLTAGE IN FRONTAL LEADS EKG Impression: ABNORMAL T, PROBABLE ISCHEMIA, INFERIOR LEADS Electronically Signed By: China Peter 13-Sep-2017 14:31:23
== END 2017-09-13 12:58 | disposition home or self-care (01) ==
LOC: FCATH 10:09
PROVIDERS: ATTEND Internal Medicine Cardiovascular Disease
DX: I48.1 Persistent atrial fibrillation (principal); I25.10 Atherosclerotic heart disease of native coronary artery without angina pectoris; E78.5 Hyperlipidemia, unspecified; I10 Essential (primary) hypertension; N40.0 Benign prostatic hyperplasia without lower urinary tract symptoms; K21.9 Gastro-esophageal reflux disease without esophagitis; M54.5 Low back pain; Z96.651 Presence of right artificial knee joint; Z95.0 Presence of cardiac pacemaker; Z79.01 Long term (current) use of anticoagulants
CPT/HCPCS: J2704

== ENCOUNTER → 2017-10-06 | Outpatient (CLI) | payer OTHER | LOC: BHFA 11:30 | PROVIDERS: ATTEND Internal Medicine Cardiovascular Disease | DX: I31.3 Pericardial effusion (noninflammatory) (principal) ==

== ENCOUNTER → 2017-10-09 | Outpatient (CLI) | payer OTHER | LOC: BHFA 14:00 | PROVIDERS: ATTEND Internal Medicine Cardiovascular Disease | DX: I48.91 Unspecified atrial fibrillation (principal); I25.10 Atherosclerotic heart disease of native coronary artery without angina pectoris | CPT/HCPCS: 78452; 93017; A9500; J2785 ==

== ENCOUNTER → 2017-10-13 | Outpatient (CLI) | payer OTHER | LOC: FIMAGING 11:16 | PROVIDERS: ATTEND Internal Medicine Cardiovascular Disease | DX: R06.02 Shortness of breath (principal) ==

== ENCOUNTER → 2017-10-18 | Outpatient (CLI) | payer OTHER | LOC: FIMAGING 13:55 | PROVIDERS: ATTEND Internal Medicine Cardiovascular Disease | DX: I48.91 Unspecified atrial fibrillation (principal); R06.02 Shortness of breath; I25.10 Atherosclerotic heart disease of native coronary artery without angina pectoris; K44.9 Diaphragmatic hernia without obstruction or gangrene ==